=== PATIENT | female | born 1985 | race African-American/Black ===

== ENCOUNTER 2019-11-10 22:20 | Emergency (ER) | payer OTHER ==
[2019-11-10 23:01] LABS: ABS Eosinophils 0.1 10^3/ul (0-0.6); ABS Lymphocytes 2.5 10^3/ul (1.0-4.8); ABS Monocytes 0.6 10^3/ul (0-0.8); Hematocrit 36 % (35-47); Hemoglobin 11.9 g/dL (12.0-16.0); Lymphocyte % 34.4 %; Mean Corpuscular HGB Conc 33 g/dL (31-36); Mean Corpuscular Hemoglobin 28 pg (27-31); Mean Corpuscular Volume 85 fL (80-97); Platelet Count 301 10^3/uL (150-450); Red Blood Count 4.23 10^6 /uL (3.70-4.87); Red Cell Distribution Width 14 % (10-15); White Blood Count 7.2 10^3/uL (3.5-10.8)
[2019-11-10 23:06] LABS: INR 0.94 (0.82-1.09)
[2019-11-10 23:11] LABS: Albumin 4.1 g/dL (3.2-5.2); Albumin/Globulin Ratio 1.4 (1-3); Calcium 8.9 mg/dL (8.6-10.3); EGFR African American 107.7 (>60); Total Bilirubin 0.2 mg/dL (0.2-1.0); Total Protein 7.1 g/dL (6.4-8.9)
[2019-11-10 23:50] LABS: Potassium 3.8 mmol/L (3.5-5.0)
--- NOTE | 2019-11-11 03:41 | ED ---
HPI Cardiac - HPI Summary HPI Summary: Patient is a 34 y/o F presenting to [facility] with complaints of CP, HURD, sore throat , SOB. She states that for the past 2.5 weeks, she has had sore throat, HURD, and CP. On 11/10/19, patient had worsened CP and onset of SOB. Patient called nursing line about her Sx, patient was advised to come to ED for workup. Sx are still present. Difficulty swallowing is denied. No fever reported. Slight cough today noted. N/V/D, abdominal pain, decreased appetite, UTI Sx are denied. LNMP was 4-5 days ago. PMHx of exercise-induced asthma, pre-diabetes noted. NKDA reported. She is a non-smoker, notes rare alcohol, denies substance abuse. PSHx of polyp removal reported. FMHx of diabetes and HTN noted. Home medications and allergies are reviewed. - History of Current Complaint Chief Complaint: EDChestPainROMI Stated Complaint: SOB PER PT Time Seen by Provider: 11/11/19 03:28 Hx Obtained From: Patient Onset/Duration: Started Weeks Ago, Still Present Timing: Lasting Weeks Current Severity: Moderate Pain Intensity: 4 Pain Scale Used: 0-10 Numeric Associated Signs and Symptoms: Positive: Chest Pain, Shortness of Breath, Cough , Other: - negative - difficulty swallowing, diarrhea, decreased appetite, UTI Sx. Negative: Fever, Nausea, Abdominal Pain, Vomiting - Allergy/Home Medications Allergies/Adverse Reactions: Allergies Allergy/AdvReac Type Severity Reaction Status Date / Time No Known Allergies Allergy Verified 11/21/17 14:53 Home Medications: Home Medications predniSONE 20 mg TAB [Deltasone 20 MG TAB*] 40 mg PO DAILY #10 tab 11/11/19 [Rx] predniSONE 20 mg TAB [Deltasone 20 MG TAB*] 40 mg PO DAILY #10 tab 11/11/19 [Rx] PMH/Surg Hx/FS Hx/Imm Hx Endocrine/Hematology History: Reports: Hx Diabetes - PRE DIABETES NO MEDICATION Cardiovascular History: Denies: Hx Hypertension, Hx Pacemaker/ICD Respiratory History: Reports: Hx Asthma History: Denies: Hx Renal Disease Sensory History: Denies: Hx Hearing Aid Psychiatric History: Denies: Hx Panic Disorder - Surgical History Surgery Procedure, Year, and Place: POLYP REMOVED FROM UTERUS - Immunization History Immunizations Up to Date: Yes Infectious Disease History: Yes Infectious Disease History: Denies: Traveled Outside the [place] in Last 30 Days - Family History Known Family History: Positive: Hypertension, Diabetes - Social History Alcohol Use: Occasionally Substance Use Type: Reports: None Smoking Status (MU): Never Smoked Tobacco - Additional Comments History Additional Comments: PMHx of exercise-induced asthma, pre-diabetes PSHx of polyp removal FMHx of diabetes and HTN Review of Systems - ROS Summary Review of Systems Summary: Home Medications Medication Instructions Recorded Confirmed Type predniSONE 20 mg TAB [Deltasone 20 40 mg PO DAILY #10 tab 11/11/19 Rx MG TAB*] Negative: Fever ENT: Other - negative - difficulty swallowing Positive: Sore Throat Positive: Chest Pain Positive: Shortness Of Breath, Cough Gastrointestinal: Other - negative - decreased appetite Negative: Abdominal Pain, Vomiting, Diarrhea, Nausea Positive: no symptoms reported - No UTI Sx Positive: Headache All Other Systems Reviewed And Are Negative: Yes Physical Exam - Summary Physical Exam Summary: General: Well-developed, Obese female. No acute distress. HEENT: Normocephalic, Atraumatic. Eyes: Conjuctiva normal, PERRL. Oropharynx: Erythematous oropharynx with exudates Neck: Soft, FROM, (-) lymphadenopathy, (-) thyromegaly, (-) JVD. Cardiovascular: Normal sinus rhythm, (-) murmur. Lungs: decreased breath sounds bilaterally, prolonged expiration (-) wheezes, (- ) rales, (-) rhonchi. Abdomen: Soft, non-tender, non-distended, (-) organomegaly, normal bowel sounds. Back: (-) CVA tenderness Extremities: No edema. Skin: Warm, dry, (-) rash. Neuro: Alert and oriented x3, moves all extremities equally. No ataxia. No gait disturbance. No sensory deficit. Normal strength, normal sensation. Psychiatric: Mildly anxious appearing. Triage Information Reviewed: Yes Vital Signs On Initial Exam: Initial Vitals Temp Pulse Resp BP Pulse Ox 98.5 F 83 18 144/92 99 11/10/19 22:31 11/10/19 22:31 11/10/19 22:31 11/10/19 22:31 11/10/19 22:31 Vital Signs Reviewed: Yes Procedures - Sedation Patient Received Moderate/Deep Sedation with Procedure: No Diagnostics - Vital Signs Vital Signs Temp Pulse Resp BP Pulse Ox 11/11/19 03:05 69 119/68 97 11/11/19 03:04 65 98 11/11/19 00:17 98.6 F 71 16 150/81 98 11/10/19 22:31 98.5 F 83 18 144/92 99 - Laboratory Lab Results: Lab Results 11/10/19 11/10/19 11/10/19 Range/Units 22:45 22:45 22:45 WBC 7.2 (3.5-10.8) 10^3/uL RBC 4.23 (3.70-4.87) 10^6 /uL Hgb 11.9 L (12.0-16.0) g/dL Hct 36 (35-47) % MCV 85 (80-97) fL MCH 28 (27-31) pg MCHC 33 (31-36) g/dL RDW 14 (10-15) % Plt Count 301 (150-450) 10^3/uL MPV 8.0 (7.4-10.4) fL Neut % (Auto) 55.3 % Lymph % (Auto) 34.4 % [place] % (Auto) 8.7 % Eos % (Auto) 1.0 % Baso % (Auto) 0.6 % Absolute Neuts (auto) 4.0 (1.5-7.7) 10^3/ul Absolute Lymphs (auto) 2.5 (1.0-4.8) 10^3/ul Absolute Monos (auto) 0.6 (0-0.8) 10^3/ul Absolute Eos (auto) 0.1 (0-0.6) 10^3/ul Absolute Basos (auto) 0.0 (0-0.2) 10^3/ul Absolute Nucleated RBC 0.0 10^3/ul Nucleated RBC % 0.0 INR (Anticoag Therapy) 0.94 (0.82-1.09) Sodium 137 (135-145) mmol/L Potassium 3.8 (3.5-5.0) mmol/L Chloride 104 (101-111) mmol/L Carbon Dioxide 26 (22-32) mmol/L Anion Gap 7 (2-11) mmol/L BUN 12 (6-24) mg/dL Creatinine 0.75 (0.51-0.95) mg/dL Est GFR ( Amer) 107.7 (>60) Est GFR (Non-Af Amer) 89.0 (>60) BUN/Creatinine Ratio 16.0 (8-20) Glucose 132 H (70-100) mg/dL Calcium 8.9 (8.6-10.3) mg/dL Total Bilirubin 0.20 (0.2-1.0) mg/dL AST 26 (13-39) U/L ALT 37 (7-52) U/L Alkaline Phosphatase 48 (34-104) U/L Troponin I 0.00 (<0.03) ng/mL Total Protein 7.1 (6.4-8.9) g/dL Albumin 4.1 (3.2-5.2) g/dL Globulin 3.0 (2-4) g/dL Albumin/Globulin Ratio 1.4 (1-3) 11/11/19 Range/Units 02:55 WBC (3.5-10.8) 10^3/uL RBC (3.70-4.87) 10^6 /uL Hgb (12.0-16.0) g/dL Hct (35-47) % MCV (80-97) fL MCH (27-31) pg MCHC (31-36) g/dL RDW (10-15) % Plt Count (150-450) 10^3/uL MPV (7.4-10.4) fL Neut % (Auto) % Lymph % (Auto) % [place] % (Auto) % Eos % (Auto) % Baso % (Auto) % Absolute Neuts (auto) (1.5-7.7) 10^3/ul Absolute Lymphs (auto) (1.0-4.8) 10^3/ul Absolute Monos (auto) (0-0.8) 10^3/ul Absolute Eos (auto) (0-0.6) 10^3/ul Absolute Basos (auto) (0-0.2) 10^3/ul Absolute Nucleated RBC 10^3/ul Nucleated RBC % INR (Anticoag Therapy) (0.82-1.09) Sodium (135-145) mmol/L Potassium (3.5-5.0) mmol/L Chloride (101-111) mmol/L Carbon Dioxide (22-32) mmol/L Anion Gap (2-11) mmol/L BUN (6-24) mg/dL Creatinine (0.51-0.95) mg/dL Est GFR ( Amer) (>60) Est GFR (Non-Af Amer) (>60) BUN/Creatinine Ratio (8-20) Glucose (70-100) mg/dL Calcium (8.6-10.3) mg/dL Total Bilirubin (0.2-1.0) mg/dL AST (13-39) U/L ALT (7-52) U/L Alkaline Phosphatase (34-104) U/L Troponin I 0.00 (<0.03) ng/mL Total Protein (6.4-8.9) g/dL Albumin (3.2-5.2) g/dL Globulin (2-4) g/dL Albumin/Globulin Ratio (1-3) Result Diagrams: 11/10/19 22:45 11/10/19 22:45 Lab Statement: Any lab studies that have been ordered have been reviewed, and results considered in the medical decision making process. - Radiology CXR Radiology Interpretation Completed By: ED Physician Summary of Radiographic Findings: No pleural effusion, no obvious infiltrate, pending official report. - EKG 2245 Cardiac Rate: NL - rate of 85 BPM EKG Rhythm: Sinus Rhythm Summary of EKG Findings: EKG showed sinus rhythm with rate of 85 BPM, no STEMI. Dr. Churchill reviewed and interpreted this EKG. Re-Evaluation - Re-Evaluation First Eval Re-Evaluation Time: 05:20 Change: Improved Comment: Improvment w/ breathing treatment, patient to be discharged. Disposition - Course Course Of Treatment: 34-year-old female presents with symptoms of chest tightness, headache, sore throat and feeling poorly for about 2 weeks now. She 's been having shortness of breath which she has attributed to some weight gain. Patient denies any high fevers. She does have history of asthma as a candidate and has an inhaler for exercise-induced asthma. No vomiting or diarrhea. On physical exam she has some mild tight wheezing. Decreased breath sounds bilaterally with prolonged expiration. Patient responds well to breathing treatments. Workup demonstrates a negative cardiac workup, negative chest x-ray. Patient started on steroids. Albuterol inhaler 4 times a day. Follow-up with PCP. Follow sooner for any worsening symptoms. During ED course patient received Duoneb and prednisone 40 mg. - Diagnoses Provider Diagnoses: Bronchitis with bronchospasm Discharge ED - Sign-Out/Discharge Documenting (check all that apply): Patient Departure - discharge - Discharge Plan Condition: Stable Disposition: HOME Prescriptions: predniSONE 20 mg TAB [Deltasone 20 MG TAB*] 40 mg PO DAILY #10 tab predniSONE 20 mg TAB [Deltasone 20 MG TAB*] 40 mg PO DAILY #10 tab Patient Education Materials: Acute Bronchitis (ED), Bronchospasm (ED) Forms: *School Release Referrals: Vani Feliz DO [Primary Care Provider] - 3 Days Additional Instructions: PLEASE RETURN TO ED FOR ANY NEW OR CONCERNING SYMPTOMS. PLEASE FOLLOW UP WITH YOUR PRIMARY CARE PHYSICIAN WITHIN THREE DAYS. - Billing Disposition and Condition Condition: STABLE Disposition: Home - Attestation Statements Document Initiated by Wenceslao: Yes Documenting Scribe: IAM VIDES Provider For Whom Wenceslao is Documenting (Include Credential): NEENA CHURCHILL MD Scribe Attestation: IAM Knight, scribed for NEENA CHURCHILL MD on 11/13/19 at [id number]. Scribe Documentation Reviewed: Yes Provider Attestation: The documentation as recorded by the IAM schmitt accurately reflects the service I personally performed and the decisions made by me, NEENA CHURCHILL MD Status of Scribe Document: Viewed
[2019-11-11] MEDS ORDERED: Albuterol/Ipratropium NEB.SOL* Albuterol 2.5 MG/Ipratropium 0.5 MG 3 ML INH ONE (03:59)
[2019-11-11 04:15] LABS: HCG Pregnancy < 0.60 mIU/mL
[2019-11-11 05:33] VITALS: BP 141/75
== END 2019-11-11 05:42 | disposition home or self-care (01) ==
LOC: ED 22:20
DX: J20.9 Acute bronchitis, unspecified (principal); R07.89 Other chest pain; R73.03 Prediabetes; J45.990 Exercise induced bronchospasm; Z79.51 Long term (current) use of inhaled steroids
CPT/HCPCS: 36415; 71045; 80053; 84484; 84702; 85025; 85610; 86308; 93005; 99283; A9270-GY; J7512

== ENCOUNTER 2019-11-21 20:48 | Emergency (ER) | payer OTHER ==
[2019-11-21] MEDS ORDERED: NS 0.9% 1000 ML** 1,000 ML IV ONE (21:38)
[2019-11-21] MEDS ORDERED: Acetaminophen TAB* 325 MG PO ONE (21:39)
--- NOTE | 2019-11-21 21:44 | ED ---
Shortness of Breath - HPI Summary HPI Summary: 34 year old F presenting to [facility] via private car with a chief complaint of persistent SOB. Patient visited [facility] on 11/10/2019 complaining of similar symptoms and was diagnosed with bronchitis with bronchospasm. She followed up with [facility] and tested positive for COVID19, which resulted yesterday, . Patient states that she has been persistently SOB today. She has a temperature of 100.2 Fahrenheit. She states finding minimal relief with albuterol inhaler usage. Patient denies having a PMHx of CAD and embolisms. Home Medications Medication Instructions Recorded Confirmed Type predniSONE 20 mg TAB [Deltasone 20 40 mg PO DAILY #10 tab 11/11/19 Rx MG TAB*] Albuterol Sulfate [Albuterol 1 puff INH BID 11/21/19 11/21/19 History Sulfate Hfa] Azithromycin 11/21/19 History Beclomethasone Dipropionate [Qvar 1 inh INH DAILY 11/21/19 11/21/19 History Redihaler] metFORMIN* [Glucophage 500 MG TAB 500 mg pe PO BID 11/21/19 11/21/19 History *] - History of Current Complaint Chief Complaint: EDShortnessOfBreath Time Seen by Provider: 11/21/19 20:56 Hx Obtained From: Patient Onset/Duration: Still Present Timing: Constant Aggravating Factors: Nothing Alleviating Factors: Nothing - Allergy/Home Medications Allergies/Adverse Reactions: Allergies Allergy/AdvReac Type Severity Reaction Status Date / Time No Known Allergies Allergy Verified 11/21/19 21:53 Home Medications: Home Medications predniSONE 20 mg TAB [Deltasone 20 MG TAB*] 40 mg PO DAILY #10 tab 11/11/19 [Rx] Albuterol Sulfate [Albuterol Sulfate Hfa] 1 puff INH BID 11/21/19 [History Confirmed 11/21/19] Beclomethasone Dipropionate [Qvar Redihaler] 1 inh INH DAILY 11/21/19 [History Confirmed 11/21/19] metFORMIN* [Glucophage 500 MG TAB *] 500 mg pe PO BID 11/21/19 [History Confirmed 11/21/19] PMH/Surg Hx/FS Hx/Imm Hx Endocrine/Hematology History: Reports: Hx Diabetes - PRE DIABETES NO MEDICATION Cardiovascular History: Denies: Hx Hypertension, Hx Pacemaker/ICD Respiratory History: Reports: Hx Asthma, Other Respiratory Problems/Disorders - Patient is positive for COVID19. History: Denies: Hx Renal Disease Sensory History: Denies: Hx Hearing Aid Psychiatric History: Denies: Hx Panic Disorder - Surgical History Surgery Procedure, Year, and Place: POLYP REMOVED FROM UTERUS - Immunization History Immunizations Up to Date: Yes Infectious Disease History: Yes Infectious Disease History: Denies: Traveled Outside the [place] in Last 30 Days - Family History Known Family History: Positive: Hypertension, Diabetes - Social History Alcohol Use: Occasionally Substance Use Type: Reports: None Smoking Status (MU): Never Smoked Tobacco Review of Systems Negative: Fever - Patient is borderline febrile with a temperature of 100.2 Farenheit. Positive: Shortness Of Breath All Other Systems Reviewed And Are Negative: Yes Physical Exam - Summary Physical Exam Summary: Constitutional: Well-developed, Well-nourished, Alert. Skin: Warm, Dry HENT: Normocephalic; Atraumatic Eyes: Conjunctiva normal Neck: Musculoskeletal ROM normal neck. (-) JVD, (-) Stridor, (-) Tracheal deviation Cardio: Rhythm regular, rate normal, Heart sounds normal; Intact distal pulses; The pedal pulses are 2+ and symmetric. Radial pulses are 2+ and symmetric. (-) Murmur Pulmonary/Chest wall: Effort normal. (+) Respiratory distress, (+) Wheezes, (-) Rales. Patient has a dry cough and has wheezing during cough. Abd: Soft, (-) tenderness, (-) Distension, (-) Guarding, (-) Rebound Musculoskeletal: (-) Edema Lymph: (-) Cervical adenopathy Neuro: Alert, Oriented x3 Psych: Mood and affect Normal Triage Information Reviewed: Yes Vital Signs On Initial Exam: Initial Vitals Temp Pulse Resp Pulse Ox 100.2 F 100 22 96 11/21/19 21:12 11/21/19 21:12 11/21/19 21:12 11/21/19 21:12 Vital Signs Reviewed: Yes Procedures - Sedation Patient Received Moderate/Deep Sedation with Procedure: No Diagnostics - Vital Signs Vital Signs Temp Pulse Resp BP Pulse Ox 11/21/19 21:21 89/70 11/21/19 21:12 100.2 F 100 22 96 - Laboratory Result Diagrams: 11/21/19 22:05 11/21/19 22:05 Lab Statement: Any lab studies that have been ordered have been reviewed, and results considered in the medical decision making process. - Radiology CXR Radiology Interpretation Completed By: ED Physician Summary of Radiographic Findings: CXR shows no acute disease, CXR is similar to one obtained 11/10/19. Pending official report. Course/Dx - Course Course Of Treatment: Patient presented to [facility] with a chief complaint of SOB with minimal relief. Patient tested positive for COVID19 at [facility]. She had a dry cough with wheezing. She recieved 650 mg of acetaminophen and 1000mls of 0.9% sodium chloride. CXR shows no acute disease, CXR is similar to one obtained 11/10/19. Bloodwork was obtained, abnormal values include sodium 134, BUN/creatinine 7.9, glucose 103, CRP 30.69. She was discharged to home with a referral for PCP followup over the phone. Patient was given COVID19 and isolation education. [facility] to follow up with the patient. - Diagnoses Provider Diagnoses: Infection due to 2019-nCo Discharge ED - Sign-Out/Discharge Documenting (check all that apply): Patient Departure - Discharge. - Discharge Plan Condition: Stable Disposition: HOME Forms: COVID-19 Tested & Isolation Referrals: Vani Feliz DO [Primary Care Provider] - 3 Days Additional Instructions: Please return to the ED for any new or worsening symptoms. Please followup with PCP over the phone within 3 days. Stop using prednisone and motrin (ibuprofen) until symptoms resolve. Please practice isolation until symptoms resolve. - Billing Disposition and Condition Condition: STABLE Disposition: Home - Attestation Statements Document Initiated by Wilneribe: Yes Documenting Scribe: Kayy Faust Provider For Whom Wenceslao is Documenting (Include Credential): Chon Warren DO Scribe Attestation: Kayy Knight scribed for Chon Warren DO on at [id number]. Scribe Documentation Reviewed: Yes Provider Attestation: The documentation as recorded by the wilneribe, Kayy Faust accurately reflects the service I personally performed and the decisions made by me, Chon Warren DO Status of Scribe Document: Viewed
[2019-11-21 22:27] LABS: ABS Lymphocytes 1.3 10^3/ul (1.0-4.8); ABS Monocytes 0.5 10^3/ul (0-0.8); ABS Neutrophils 3.7 10^3/ul (1.5-7.7); Hematocrit 38 % (35-47); Hemoglobin 13.1 g/dL (12.0-16.0); Lymphocyte % 23.5 %; Mean Corpuscular HGB Conc 34 g/dL (31-36); Mean Corpuscular Hemoglobin 28 pg (27-31); Mean Corpuscular Volume 83 fL (80-97); Mean Platelet Volume 8.1 fL (7.4-10.4); Nucleated Red Blood Cells % 0.1; Platelet Count 232 10^3/uL (150-450); Red Blood Count 4.62 10^6 /uL (3.70-4.87); Red Cell Distribution Width 15 % (10-15); White Blood Count 5.6 10^3/uL (3.5-10.8)
[2019-11-21 22:34] LABS: Albumin 4.1 g/dL (3.2-5.2); CO2 Carbon Dioxide 25 mmol/L (22-32); Calcium 8.3 mg/dL (8.6-10.3); Chloride 101 mmol/L (101-111); Sodium 134 mmol/L (135-145)
[2019-11-21 22:40] LABS: ALT 51 U/L (7-52); Albumin/Globulin Ratio 1.3 (1-3); Alkaline Phosphatase 53 U/L (34-104); BUN/Creatinine Ratio 7.9 (8-20); Blood Urea Nitrogen 7 mg/dL (6-24); C Reactive Protein 30.69 mg/L (<8.01); EGFR African American 88.4 (>60); Globulin 3.2 g/dL (2-4); Glucose 103 mg/dL (70-100); Total Protein 7.3 g/dL (6.4-8.9)
[2019-11-21 22:52] LABS: Anion Gap 8 mmol/L (2-11); Potassium 3.9 mmol/L (3.5-5.0)
[2019-11-21 22:53] LABS: AST 35 U/L (13-39)
[2019-11-21 23:09] VITALS: BP 129/68
[2019-11-21 23:17] LABS: HCG Pregnancy < 0.60 mIU/mL
--- NOTE | 2019-11-22 15:19 | ED ---
Imaging and Labs Follow Up Follow Up Type: Imaging Labs/Culture Result: Similar mild patchy airspace disease Patient Communication/Plan: Patient did test positive for Covid 19 Imaging Result: similar to previous xray nothing further required Patient Communication/Plan: pt was informed of positive covid and will f/u with PCP Provider Diagnoses: Infection due to 2019-nCoV
== END 2019-11-21 22:56 | disposition home or self-care (01) ==
LOC: ED 20:48
DX: J20.8 Acute bronchitis due to other specified organisms (principal); B97.29 Other coronavirus as the cause of diseases classified elsewhere; R06.02 Shortness of breath; R50.9 Fever, unspecified; R06.2 Wheezing; Z79.52 Long term (current) use of systemic steroids; Z79.899 Other long term (current) drug therapy; R73.03 Prediabetes
CPT/HCPCS: 36415; 71045; 80053; 83605; 84702; 85025; 86140; 99284; A9270-GY

== ENCOUNTER 2019-11-23 12:10 | Emergency (ER) | payer OTHER ==
--- NOTE | 2019-11-23 12:32 | ED ---
Respiratory - HPI Summary HPI Summary: This patient is a 34 year old female presenting to [facility] with a chief complaint of SOB. Patient initially came to the ER and was diagnosed with bronchitis with bronchospasm. Symptoms did not resolve and tested positive for COVID-19 at [facility]. She states her coughing spasms have become more severe where it is difficult for her to breathe. She states she does not feel short of breath when she is not coughing and laying down. She states when she walks around she feels a little winded but symptoms do not significantly change upon exertion. She states she is not currently experiencing SOB. She states she talked to the [facility] Department which directed her here. She states a childhood Hx of asthma. She states the severity of cough is constant with intermittent attacks in greater severity. She states her fevers are consistently 101 F when she is not taking Tylenol. Her fevers and cough have been more persistent and occurring more frequently than at initial onset. Patient denies any chills, erythema of eyes, sore throat, chest pain, abdominal pain, nausea/vomiting, dysuria, hematuria, myalgia, edema, rash, or dizziness. - History of Current Complaint Stated Complaint: GENERAL ILLNESS BY HEALTH DEPT Time Seen by Provider: 11/23/19 12:13 Hx Obtained From: Patient Onset/Duration: Lasting Days Character: Wheezing, Cough (Nonproductive) - Allergy/Home Medications Allergies/Adverse Reactions: Allergies Allergy/AdvReac Type Severity Reaction Status Date / Time No Known Allergies Allergy Verified 11/21/19 21:53 Home Medications: Home Medications Albuterol Sulfate [Albuterol Sulfate Hfa] 1 puff INH BID 11/21/19 [History Confirmed 11/23/19] Beclomethasone Dipropionate [Qvar Redihaler] 1 inh INH DAILY 11/21/19 [History Confirmed 11/23/19] Azithromycin TAB* [Zithromax TAB (Z-ATA) 250 mg #6 tabs] 2 tab PO .TODAY, THEN 1 DAILY #1 ata 11/23/19 [Rx] Azithromycin TAB* [Zithromax TAB (Z-ATA) 250 mg #6 tabs] 2 tab PO .TODAY, THEN 1 DAILY #1 ata 11/23/19 [Rx] Dexamethasone TAB* [Decadron TAB*] 8 mg PO DAILY #8 tab 11/23/19 [Rx] Dexamethasone TAB* [Decadron TAB*] 8 mg PO DAILY #8 tab 11/23/19 [Rx] PMH/Surg Hx/FS Hx/Imm Hx Endocrine/Hematology History: Reports: Hx Diabetes - PRE DIABETES NO MEDICATION Cardiovascular History: Denies: Hx Hypertension, Hx Pacemaker/ICD Respiratory History: Reports: Hx Asthma, Other Respiratory Problems/Disorders - Patient is positive for COVID19. History: Denies: Hx Renal Disease Sensory History: Denies: Hx Hearing Aid Psychiatric History: Denies: Hx Panic Disorder - Surgical History Surgery Procedure, Year, and Place: POLYP REMOVED FROM UTERUS - Family History Known Family History: Positive: Hypertension, Diabetes - Social History Alcohol Use: Occasionally Hx Substance Use: No Substance Use Type: Reports: None Hx Tobacco Use: No Smoking Status (MU): Never Smoked Tobacco Review of Systems Positive: Fever. Negative: Chills Negative: Erythema Negative: Sore Throat Negative: Chest Pain Positive: Shortness Of Breath, Cough Negative: Abdominal Pain, Vomiting, Nausea Negative: dysuria, hematuria Negative: Myalgia, Edema Negative: Rash Neurological/Mental Status: Other - Neg: Dizziness All Other Systems Reviewed And Are Negative: Yes Physical Exam - Summary Physical Exam Summary: Constitutional: Well-developed, Well-nourished, Alert. (-) Distressed Skin: Warm, Dry HENT: Normocephalic; Atraumatic Eyes: Conjunctiva normal Neck: Musculoskeletal ROM normal neck. (-) JVD, (-) Stridor, (-) Tracheal deviation Cardio: Rhythm regular, rate normal, Heart sounds normal; Intact distal pulses; Radial pulses are 2+ and symmetric. (-) Murmur Pulmonary/Chest wall: Incessant coughing with deep breaths, Faint crackles in the right lower lung field, (-) Respiratory distress, (-) Wheezes, (-) Rales Abd: Soft, (-) tenderness, (-) Distension, (-) Guarding, (-) Rebound Musculoskeletal: (-) Edema Lymph: (-) Cervical adenopathy Neuro: Alert, Oriented x3 Psych: Mood and affect Normal Triage Information Reviewed: Yes Vital Signs On Initial Exam: Temp Pulse Resp BP Pulse Ox 99.6 F 88 22 117/72 95 11/23/19 12:30 11/23/19 12:30 11/23/19 12:30 11/23/19 12:30 11/23/19 12:30 Vital Signs Reviewed: Yes Procedures - Sedation Patient Received Moderate/Deep Sedation with Procedure: No Diagnostics - Laboratory Result Diagrams: 11/23/19 14:09 11/23/19 14:09 Lab Statement: Any lab studies that have been ordered have been reviewed, and results considered in the medical decision making process. - CT Chest CT CT Interpretation Completed By: Radiologist Summary of CT Findings: Impression: 1. Atypical pneumonia involving approximately 20% of the lung montoya (nonspecific findings are compatible with the provided history of COVID19). 2. No pleural effusion or lymphadenopathy by size criteria. 3. Hepatic steatosis. Dr. Navarro has reviewed this report. Re-Evaluation - Re-Evaluation First Eval Re-Evaluation Time: 15:45 Change: Improved Comment: Patient is feeling better. We discussed all results and plan for discharge. Disposition - Course Course Of Treatment: This patient is a 34 year old female presenting to [facility] with a chief complaint of SOB. Patient initially came to the ER and was diagnosed with bronchitis with bronchospasm. Symptoms did not resolve and tested positive for COVID-19 at [facility]. She states her coughing spasms have become more severe where it is difficult for her to breathe. She states she does not feel short of breath when she is not coughing and laying down. She states when she walks around she feels a little winded but symptoms do not significantly change upon exertion. She states she is not currently experiencing SOB. She states she talked to the [facility] Department which directed her here. She states a Hx of asthma, worse when she wa sa child. She states the severity of cough is constant with intermittent attacks in greater severity. She states her fevers are consistently 101 F when she is not taking Tylenol. Her fevers and cough have been more persistent and occurring more frequently than at initial onset. No chills, chest pain, sore throat. Patient is incessantly coughing upon deep inhalation during physical exam. There are faint crackles in the right lower lung field. She will be given steroids and MDI due to Hx of astham. The cough and wheezing she described could be realted to asthma exacerbation. Patient received Decadron, Albuterol treatment, Azithromycin. Blood work primarily within normal limits with slight abnormalities of BUN 5, glucose 115, calcium 8.5. Chest CT reveals atypical pneumonia involving approximately 20% of the lung montoya compatible with positive COVID19 history; no pleural effusion or lymphadenopathy. Patient has been positive for COVID-19 and could have developed secondary bacterial pneumonia that is also exacerbating her asthma. All results discussed with the patient. Patient is safe for discharge with [facility] follow up in 2-3 days. Rx for Azithromycin and Decadron. Return precautions given. Patient agreeable with plan. The patient's cough is debilitating for her to the point where she cannot sleep, also to the point of near syncope from vagal response. The patient asthma exacerbations treated with steroids as a comorbid condition to covid. Assessment/Plan: I discussed the case with Dr. Sheriff, the medical equipment repair technician of [facility]. They will reassess the patient tomorrow, the plan at this point is to assess for positive therapeutic effective of steroid, if worsening symptoms have not improved markedly by tomorrow, we will assume that steroids would not add any benefit, and would be discontinued at that time. I reiterated my concern that the patient's pneumonia and covid was exacerbating her asthma. - Diagnoses Provider Diagnoses: Bacterial pneumonia, Pneumonia due to 2019 novel coronavirus, Asthma exacerbation - Physician Notifications Discussed Care Of Patient With: Sowmya Sheriff Time Discussed With Above Provider: 16:15 Instructed by Provider To: Have Pt Call For Appt. Admit/Transition Orders Completed By ED Provider: No Discharge ED - Sign-Out/Discharge Documenting (check all that apply): Patient Departure - Patient will be discharged home. - Discharge Plan Condition: Stable Disposition: HOME Prescriptions: Azithromycin TAB* [Zithromax TAB (Z-ATA) 250 mg #6 tabs] 2 tab PO .TODAY, THEN 1 DAILY #1 ata Azithromycin TAB* [Zithromax TAB (Z-ATA) 250 mg #6 tabs] 2 tab PO .TODAY, THEN 1 DAILY #1 ata Dexamethasone TAB* [Decadron TAB*] 8 mg PO DAILY #8 tab Dexamethasone TAB* [Decadron TAB*] 8 mg PO DAILY #8 tab Patient Education Materials: Asthma (DC), Viral Pneumonia (DC), Bacterial Pneumonia (ED) Referrals: [facility] [Provider Group] - 3 Days Vani Feliz DO [Primary Care Provider] - If Needed Additional Instructions: Please take antibiotics as prescribed. Follow up with [facility] in 2-3 days. Consider tele health. Return to the emergency department for any new or worsening symptoms such as shortness of breath that does not resolve after coughing. - Billing Disposition and Condition Condition: STABLE Disposition: Home - Attestation Statements Document Initiated by Wenceslao: Yes Documenting Scribe: Keerthi Arriaza Provider For Whom Wenceslao is Documenting (Include Credential): Jagdish Navarro MD Scribe Attestation: Wayne Knight Natalie George, scribed for Jagdish Navarro MD on 11/23/19 at 1627. Scribe Documentation Reviewed: Yes Provider Attestation: The documentation as recorded by the Wayne schmitt Natalie George accurately reflects the service I personally performed and the decisions made by Jagdish smith MD Status of Scribe Document: Viewed
[2019-11-23] MEDS ORDERED: Dexamethasone TAB* 4 MG PO ONE (12:44)
[2019-11-23] MEDS ORDERED: Albuterol HFA INHALER* 8 gm MDI INH ONE (12:45)
[2019-11-23] MEDS ORDERED: Azithromycin TAB* 250 MG PO ONE (14:21)
[2019-11-23 14:24] LABS: Hematocrit 37 % (35-47); Hemoglobin 12.7 g/dL (12.0-16.0); Mean Corpuscular HGB Conc 34 g/dL (31-36); Mean Corpuscular Hemoglobin 28 pg (27-31); Mean Corpuscular Volume 84 fL (80-97); Mean Platelet Volume 7.9 fL (7.4-10.4); Platelet Count 188 10^3/uL (150-450); Red Blood Count 4.47 10^6 /uL (3.70-4.87); Red Cell Distribution Width 15 % (10-15)
[2019-11-23 14:36] LABS: Albumin 3.9 g/dL (3.2-5.2); Albumin/Globulin Ratio 1.3 (1-3); BUN/Creatinine Ratio 6.4 (8-20); Calcium 8.5 mg/dL (8.6-10.3); EGFR African American 102.9 (>60); EGFR Non-African American 85.1 (>60); Globulin 2.9 g/dL (2-4); Potassium 3.9 mmol/L (3.5-5.0); Total Bilirubin 0.3 mg/dL (0.2-1.0); Total Protein 6.8 g/dL (6.4-8.9)
[2019-11-23 16:03] VITALS: BP 113/72
== END 2019-11-23 16:02 | disposition home or self-care (01) ==
LOC: ED 12:10
DX: J12.89 Other viral pneumonia (principal); B97.29 Other coronavirus as the cause of diseases classified elsewhere; J45.901 Unspecified asthma with (acute) exacerbation; K76.0 Fatty (change of) liver, not elsewhere classified; Z79.899 Other long term (current) drug therapy
CPT/HCPCS: 36415; 71250; 80053; 83605; 85027; 99283; A9270-GY; J8540

== ENCOUNTER 2019-11-25 03:27 | Inpatient (IN) | payer OTHER ==
--- NOTE | 2019-11-25 03:30 | ED ---
Shortness of Breath - HPI Summary HPI Summary: Patient is a 34 y/o F presenting to the ED via EMS for a chief complaint of shortness of breath. Patient states she was walking to her bathroom when she had a syncopal episode after coughing. At home, patient also reports fever of 102 F. She has been taking Tylenol to manage the fever, but has not yet taken a dose of Tylenol on 11/25/19. Patient was given oxygen by EMS with some relief. Within the last hour BOAT PILOT at [facility], patient has used an inhaler several times without relief. Initially, patient's symptoms began on 11/10/19 at which time she was seen at [facility]. On 11/17/19, patient was seen at [facility] where she was tested for COVID-19. Patient was confirmed positive for COVID-19 on . Since being confirmed positive, she has been seen at [facility] 3 times for shortness of breath and cough. Patient was also recently diagnosed with right sided pneumonia. PMHx is significant for asthma. - History of Current Complaint Chief Complaint: EDShortnessOfBreath Hx Obtained From: Patient Onset/Duration: Sudden Onset, Still Present Timing: Constant Current Severity: Moderate Dyspnea At: Rest Aggravating Factors: Nothing Alleviating Factors: Oxygen Associated Signs & Symptoms: Fever - In vitals, 101 F - Allergy/Home Medications Allergies/Adverse Reactions: Allergies Allergy/AdvReac Type Severity Reaction Status Date / Time No Known Allergies Allergy Verified 11/25/19 03:58 Home Medications: Home Medications Albuterol Sulfate [Albuterol Sulfate Hfa] 1 puff INH BID 11/21/19 [History Confirmed 11/25/19] Levofloxacin TAB* [Levaquin 750 MG TAB*] 750 mg PO DAILY 11/25/19 [History Confirmed 11/25/19] PMH/Surg Hx/FS Hx/Imm Hx Previously Healthy: Yes Endocrine/Hematology History: Reports: Hx Diabetes - PRE DIABETES NO MEDICATION Cardiovascular History: Denies: Hx Hypertension, Hx Pacemaker/ICD Respiratory History: Reports: Hx Asthma, Hx Pneumonia, Other Respiratory Problems/Disorders - Patient is positive for COVID19. History: Denies: Hx Renal Disease Sensory History: Denies: Hx Hearing Aid Psychiatric History: Denies: Hx Panic Disorder - Surgical History Surgical History: Yes Surgery Procedure, Year, and Place: POLYP REMOVED FROM UTERUS Infectious Disease History: Yes Infectious Disease History: Reports: History Other Infectious Disease - COVID-19 , confirmed positive 11/20/19 Denies: Traveled Outside the [place] in Last 30 Days - Family History Known Family History: Positive: Hypertension, Diabetes - Social History Occupation: Student Alcohol Use: Occasionally Hx Substance Use: No Substance Use Type: Reports: None Hx Tobacco Use: No Smoking Status (MU): Never Smoked Tobacco Review of Systems - ROS Summary Review of Systems Summary: Albuterol Sulfate [Albuterol Sulfate Hfa] 1 puff INH BID 11/21/19 [History Confirmed 11/25/19] Levofloxacin TAB* [Levaquin 750 MG TAB*] 750 mg PO DAILY 11/25/19 [History Confirmed 11/25/19] Positive: Fever - In vitals, 101 F Positive: Shortness Of Breath, Cough Positive: Syncope - Resolved All Other Systems Reviewed And Are Negative: Yes Physical Exam - Summary Physical Exam Summary: General: Well-developed, Well-nourished Female. No acute distress. Febrile. HEENT: Normocephalic, Atraumatic. Eyes: Conjuctiva normal, PERRL. Oropharynx: Clear, mucous membranes moist, (-) exudates. Neck: Soft, FROM, (-) lymphadenopathy, (-) thyromegaly, (-) JVD. Cardiovascular: Normal sinus rhythm, (-) murmur. Tachycardic. Lungs: Clear to auscultation bilaterally (-) wheezes, (-) rales, (-) rhonchi. Abdomen: Soft, non-tender, non-distended, (-) organomegaly, normal bowel sounds. Back: (-) CVA tenderness Extremities: No edema. Skin: Warm, dry, (-) rash. Neuro: Alert and oriented x3, moves all extremities equally. No ataxia. No gait disturbance. No sensory deficit. Normal strength, normal sensation. Psychiatric: Mood normal, affect normal. Triage Information Reviewed: Yes Vital Signs Reviewed: Yes Procedures - Sedation Patient Received Moderate/Deep Sedation with Procedure: No Diagnostics - Laboratory Result Diagrams: 11/25/19 03:30 11/25/19 03:30 Lab Statement: Any lab studies that have been ordered have been reviewed, and results considered in the medical decision making process. Course/Dx - Course Course Of Treatment: 34-year-old female presents to the emergency room by ambulance with cough and shortness of breath. She has been diagnosed with Covid -19 after being tested at [facility] on November 16. She has been back to the emergency room twice since then. Tonight she states she continues with cough. Weakness. Unable to catch her breath. She does have underlying asthma as well. Patient has been taking her medication at home as directed she states. Not currently on steroids. Patient is hypoxic when she is taken off her nasal cannula in the emergency room. She has mild wheezing on exam. Laboratories show slightly elevated lactic acid. Normal white blood cells. Patient discussed with hospitalist for admission. Hospitalist requested CT chest. This is compared to the CT done 2 days ago at a prior ER visit. Patient awaiting admission. In the ED course, patient was given Zosyn 3.375 gm and IV fluids. - Diagnoses Provider Diagnoses: Hypoxia, Infection due to 2019-nCoV - Physician Notifications Discussed Care of Patient With: Elvis Larsen - At 04:20, Dr. Elvis Larsen reviewed the patients case and agrees to admit the patient to [facility] with a diagnosis of 2019-nCoV infection and hypoxia. Time Discussed With Above Provider: 04:20 Instructed by Provider To: Admit As Inpatient Discharge ED - Sign-Out/Discharge Documenting (check all that apply): Patient Departure - Admit - Discharge Plan Condition: Stable Disposition: ADMITTED TO [facility] Referrals: Vani Feliz DO [Primary Care Provider] - - Billing Disposition and Condition Condition: STABLE Disposition: Admitted to [facility] - Attestation Statements Document Initiated by Wenceslao: Yes Documenting Scribe: Debbi Rivero Provider For Whom Wenceslao is Documenting (Include Credential): Nasrin Churchill MD Scribe Attestation: Debbi Knight, scribed for Nasrin Churchill MD on 11/25/19 at 0650. Scribe Documentation Reviewed: Yes Provider Attestation: The documentation as recorded by the Debbi schmitt accurately reflects the service I personally performed and the decisions made by me, Nasrin Churchill MD Status of Scribe Document: Viewed
[2019-11-25] MEDS ORDERED: NS 0.9% 1000 ML** 1,000 ML IV ONE ×2 (03:46→07:48)
[2019-11-25 04:05] LABS: ABS Lymphocytes 1.2 10^3/ul (1.0-4.8); ABS Monocytes 0.5 10^3/ul (0-0.8); ABS Neutrophils 6.1 10^3/ul (1.5-7.7); Hematocrit 37 % (35-47); Hemoglobin 12.6 g/dL (12.0-16.0); Lymphocyte % 15.3 %; Mean Corpuscular HGB Conc 34 g/dL (31-36); Mean Corpuscular Hemoglobin 28 pg (27-31); Mean Corpuscular Volume 83 fL (80-97); Mean Platelet Volume 8.7 fL (7.4-10.4); Platelet Count 215 10^3/uL (150-450); Red Blood Count 4.45 10^6 /uL (3.70-4.87); Red Cell Distribution Width 15 % (10-15); White Blood Count 7.7 10^3/uL (3.5-10.8)
[2019-11-25 04:09] LABS: INR 1.16 (0.82-1.09)
[2019-11-25] MEDS ORDERED: Piperacillin/Tazobac ADVAN(*) 3.375 GM in NS 0.9% 100 ML* 100 ML IVPB ONE (04:18)
[2019-11-25 04:20] LABS: ALT 47 U/L (7-52); Albumin 4.1 g/dL (3.2-5.2); Albumin/Globulin Ratio 1.1 (1-3); Alkaline Phosphatase 47 U/L (34-104); BUN/Creatinine Ratio 8.8 (8-20); Blood Urea Nitrogen 8 mg/dL (6-24); CO2 Carbon Dioxide 24 mmol/L (22-32); Calcium 9.1 mg/dL (8.6-10.3); Chloride 99 mmol/L (101-111); EGFR African American 86.1 (>60); EGFR Non-African American 71.2 (>60); Globulin 3.7 g/dL (2-4); Glucose 121 mg/dL (70-100); Sodium 135 mmol/L (135-145); Total Protein 7.8 g/dL (6.4-8.9)
[2019-11-25] MEDS ORDERED: Piperacillin/Tazobac (*) 3.375 GM BAG ONE (04:20)
[2019-11-25 04:28] LABS: HCG Pregnancy < 0.60 mIU/mL
[2019-11-25] MEDS ORDERED: Iodixanol* (CONTRAST) 320 MG/ML 100 ML SDV IV ONE (04:30)
[2019-11-25] MEDS ORDERED: Ondansetron INJ* 2 MG/ML VIAL IV PRN (05:03)
[2019-11-25] MEDS ORDERED: Acetaminophen TAB* 325 MG PO PRN (05:03)
[2019-11-25] MEDS ORDERED: Iohexol 300* (CONTRAST) 10 ML SDV IV ONE (05:46)
[2019-11-25 06:00] LABS: AST 38 U/L (13-39); Anion Gap 12 mmol/L (2-11); Potassium 4.1 mmol/L (3.5-5.0)
[2019-11-25] MEDS ORDERED: Azithromycin TAB* 250 MG PO SCH ×2 (06:00)
[2019-11-25] MEDS ORDERED: Levofloxacin TAB* 750 MG PO SCH (06:00)
[2019-11-25] MEDS ORDERED: Acetaminophen TAB* 325 MG PO ONE (07:50)
--- NOTE | 2019-11-25 08:05 | HP ---
HISTORY AND PHYSICAL: DATE OF ADMISSION: 11/25/19 HISTORY OF PRESENT ILLNESS: This is a 34-year-old -[place]izen [place] female with past medical history significant for prediabetes and asthma and recently diagnosed with COVID-19 pneumonia. The patient presented to the ED with chief complaint of shortness of breath. The patient states she was walking to her bathroom when she had a syncopal episode after coughing. The shortness of breath is progressively worsening. There is also a complaint of fever, which she said she measured at 102 degrees Fahrenheit, which responded to Tylenol. She was recently diagnosed with COVID-19 and was sent home on p.o. antibiotics Levaquin 750 mg daily and azithromycin 500 mg daily. This is the third time she is coming back to the ED. The patient said she was in [facility] about a month ago and was in the same building with the managing attorney that was diagnosed with COVID-19. She said she went for a conference and was on the 45th floor, while the said managing attorney was on the 47th floor on the same date and time. Cough is nonproductive, but it is increasingly worsening. The patient also diagnosed with right-sided pneumonia and due to her asthma exacerbation, she was placed on prednisone, but prednisone has already been stopped by her PCP when she called her PCP. She denied chest pain, nausea, vomiting. No diarrhea. No constipation. The patient stated she is so weak that she called her mother to come and help her and the mother is also asthmatic before she was diagnosed with COVID-19. PAST MEDICAL HISTORY: 1. Asthma. 2. Prediabetes. PAST SURGICAL HISTORY: Uterine Polyps removal. MEDICATIONS: 1. Albuterol inhaler as needed for shortness of breath and wheezing. 2. She was recently sent home on Levaquin 750 mg daily as well as azithromycin 500 mg daily. ALLERGIES: No known drug allergy. FAMILY HISTORY: Positive for diabetes and hypertension for the mom and dad. The mother also has a history of asthma. SOCIAL HISTORY: The patient denied toxic habits. REVIEW OF SYSTEMS: Positive for fever, shortness of breath. Denied headache or palpitations. Positive for cough. All other systems reviewed are negative except as reported in HPI. PHYSICAL EXAMINATION CONSTITUTIONAL: Well developed, well nourished, alert and in mild respiratory distress. VITAL SIGNS: Temperature 102.5, heart rate 114, respiratory rate 22, oxygen saturation on room air 98%, blood pressure 119/96, HEENT: Normocephalic, atraumatic. Eyes: EOMI. Conjunctivae normal. NECK: Supple. No JVD. No nuchal rigidity. Trachea midline. PULMONARY: Mildly tachypneic, in mild respiratory distress. Decreased respiratory sounds. Bilateral mild wheezing. CARDIOVASCULAR: S1, S2 heard. Tachycardic. No murmurs. No rubs. No friction. ABDOMEN: Soft, obese, nontender, nondistended. No guarding, no rebound. No palpable masses. Bowel sounds heard in all 4 quadrants, normal. MUSCULOSKELETAL: Acyanotic. No edema. Moves all 4 limbs. NEUROLOGIC: Alert and oriented x3. CN II to CN XII grossly normal. No focal deficits. SKIN: Warm, dry, no rashes. PSYCHIATRIC: Mildly anxious. Normal mood and normal affect. DIAGNOSTIC STUDIES/LAB DATA: Hematology: WBC 7.7, RBC 4.45, hemoglobin 12.6, hematocrit 37, MCV 83, MCH 28, MCHC 34, RDW 15, platelet count 215, MPV 8.7, neutrophils 78.4, absolute neutrophils 6.1. Chemistry: Sodium 137, potassium 3.9, chloride 103, carbon dioxide 26, anion gap 8, BUN 5, creatinine 0.78, estimated GFR -[place] 102.9, BUN and creatinine ratio 6.4, glucose 115 , lactic acid 0.7, calcium 8.5, total bilirubin 0.30. AST 37, ALT 46, alkaline phosphatase 51, total protein 6.8, albumin 3.9, globulin 2.9, albumin/globulin ratio 1.3. INR 1.16. CT chest of 11/23/19 revealed atypical pneumonia involving approximately 20% of the lung montoya. Nonspecific findings are compatible with the provided history of COVID-19. No pleural effusion or lymphadenopathy by size criteria. Hepatic steatosis. A request had been put in for repeat CT, CTA for comparison, yet to do this test, we will follow up with the report. ASSESSMENT AND PLAN: A 34-year-old -[place]izen [place] female with past medical history significant for asthma and prediabetes, presented to the ED for the third time with shortness of breath, fever, and syncopal episode after coughing while walking to the bathroom. The patient diagnosed with COVID-19 previously and being treated outpatient. Due to the worsening shortness of breath, the patient will be admitted to the ICU per COVID protocol. For the pneumonia secondary to COVID, the patient will be started on hydroxychloroquine and azithromycin combo per protocol. The patient will also be receiving IV Zosyn to cover for community acquired pneumonia. Acetaminophen for fever. A repeat CT chest, CTA as already stated. Infectious Disease consult. For asthma, the patient will continue on albuterol inhaler. Precaution should be taken for nebulizer use unless when absolutely necessary. Oxygen therapy as needed. For prediabetes, I will advise the patient's diet to be diabetic diet for now. Code status. The patient will be full code at this time. DVT prophylaxis, SCDs. Follow up a.m. labs. Electrolytes and fluids will be repleted as needed. TIME SPENT: Time spent on the admission 65 minutes. Thank you very much for the opportunity to partake in the healthcare need of this silviano lady. [id number]/CPS #: [id number] KENDELL
[2019-11-25] MEDS ORDERED: ZOSYN 3.375 GM Q8H per EXTENDED INFUSION IVPB SCH ×2 (08:30)
[2019-11-25] MEDS ORDERED: Albuterol HFA INHALER* 8 gm MDI INH SCH (09:00)
[2019-11-25 09:17] LABS: C Reactive Protein 27.06 mg/L (<8.01)
[2019-11-25] MEDS: Hydroxychloroquine TAB* 200 MG PO SCH ×2 (09:33→22:41)
--- NOTE | 2019-11-25 12:46 | PN ---
Subjective Date of Service: 11/25/19 Interval History: Brief update: Admitted early this morning after syncopal episode during coughing spell. Nursing staff notes that patient initially required 2L supplemental O2 to maintain SaO2 > 92%. On my interview, patient was able to maintain SaO2 > 92% while on room air, but expressed significant distress over how much dyspnea she experiences when coughing. She is not having dyspnea now, at rest. PCP from [facility] notes that patient has been going to urgent care, [facility], or [facility] daily for most of the last 2 weeks (symptoms started on the ). Objective Active Medications: Acetaminophen (Tylenol Tab*) 975 mg PO Q8H PRN PRN Reason: MILD PAIN or TEMP > 100.4 Albuterol (Ventolin Hfa Inhaler*) 2 puff INH Q4H PRN PRN Reason: WHEEZING Enoxaparin Sodium (Lovenox(*)) 40 mg SUBCUT BEDTIME HECTOR Guaifenesin/Codeine Phosphate (Robitussin Ac 100mg/10mg In 5 Ml) 5 ml PO Q6H PRN PRN Reason: COUGH Hydroxychloroquine Sulfate (Plaquenil Tab*) 600 mg PO BID [facility] Stop: 11/25/19 21:30 Last Admin: 11/25/19 09:33 Dose: 600 mg Hydroxychloroquine Sulfate (Plaquenil Tab*) 400 mg PO DAILY [facility] Stop: 11/29/19 09:01 Magnesium Sulfate (Magnesium Sulfate 2 Gm Iv*) 2 gm in 50 mls @ 50 mls/hr IVPB ONCE ONE Stop: 11/25/19 14:29 Last Admin: 11/25/19 13:19 Dose: 50 mls/hr Ondansetron HCl (Zofran Inj*) 4 mg IV Q4H PRN PRN Reason: NAUSEA/VOMITING Acetaminophen (Tylenol Tab*) 975 mg PO Q8H PRN PRN Reason: MILD PAIN or TEMP > 100.4 Albuterol (Ventolin Hfa Inhaler*) 1 puff INH BID [facility] Last Admin: 11/25/19 09:36 Dose: 1 puff Enoxaparin Sodium (Lovenox(*)) 40 mg SUBCUT BEDTIME HECTOR Guaifenesin/Codeine Phosphate (Robitussin Ac 100mg/10mg In 5 Ml) 5 ml PO Q6H PRN PRN Reason: COUGH Hydroxychloroquine Sulfate (Plaquenil Tab*) 600 mg PO BID [facility] Stop: 11/25/19 21:30 Last Admin: 11/25/19 09:33 Dose: 600 mg Hydroxychloroquine Sulfate (Plaquenil Tab*) 400 mg PO DAILY [facility] Stop: 11/29/19 09:01 Magnesium Sulfate (Magnesium Sulfate 2 Gm Iv*) 2 gm in 50 mls @ 50 mls/hr IVPB ONCE ONE Stop: 11/25/19 14:29 Last Admin: 11/25/19 13:19 Dose: 50 mls/hr Ondansetron HCl (Zofran Inj*) 4 mg IV Q4H PRN PRN Reason: NAUSEA/VOMITING Vital Signs - 8 hr 11/25/19 11/25/19 11/25/19 05:00 05:06 06:19 Temperature 101.0 F Pulse Rate 104 103 104 Respiratory 37 36 20 Rate Blood Pressure 126/78 (mmHg) O2 Sat by Pulse 98 99 Oximetry 11/25/19 11/25/19 11/25/19 06:43 06:50 07:00 Temperature Pulse Rate 108 104 102 Respiratory 37 36 39 Rate Blood Pressure 110/74 122/78 (mmHg) O2 Sat by Pulse 96 96 95 Oximetry 11/25/19 11/25/19 11/25/19 07:20 07:21 07:50 Temperature Pulse Rate 108 103 100 Respiratory 40 38 44 Rate Blood Pressure 92/65 100/65 (mmHg) O2 Sat by Pulse 96 96 98 Oximetry 11/25/19 11/25/19 11/25/19 08:00 08:20 09:00 Temperature Pulse Rate 98 94 97 Respiratory 43 36 38 Rate Blood Pressure 128/69 (mmHg) O2 Sat by Pulse 97 98 98 Oximetry 11/25/19 11/25/19 11/25/19 09:21 09:36 09:44 Temperature 103.6 F Pulse Rate 98 102 Respiratory 38 34 Rate Blood Pressure 99/53 (mmHg) O2 Sat by Pulse 93 94 Oximetry 11/25/19 11/25/19 11/25/19 09:50 10:00 10:15 Temperature 103.6 F Pulse Rate 100 102 Respiratory 33 35 38 Rate Blood Pressure 100/48 100/48 (mmHg) O2 Sat by Pulse 97 97 Oximetry 11/25/19 11/25/19 11/25/19 10:20 10:50 11:00 Temperature Pulse Rate 96 92 87 Respiratory 33 30 30 Rate Blood Pressure 97/59 94/61 (mmHg) O2 Sat by Pulse 95 95 97 Oximetry 11/25/19 11/25/19 11/25/19 11:20 11:50 12:00 Temperature Pulse Rate 86 90 87 Respiratory 29 33 21 Rate Blood Pressure 91/50 101/59 (mmHg) O2 Sat by Pulse 95 92 93 Oximetry 11/25/19 12:20 Temperature Pulse Rate 84 Respiratory 30 Rate Blood Pressure 101/61 (mmHg) O2 Sat by Pulse 93 Oximetry Oxygen Devices in Use Now: Nasal Cannula Result Diagrams: 11/25/19 03:30 11/25/19 03:30 Assess/Plan/Problems-Billing Assessment: 34W with pre-diabetes and childhood asthma, with recent positive COVID test ( November 16), presents after syncopal episode in the context of significant coughing. - Patient Problems (1) Infection due to 2019 novel coronavirus Comment: COVID confirmed by testing on November 16. Symptoms started on the . Has presented to [facility], urgent care, and [facility] several times for dyspnea. Now presents after reflex syncope (post-tussive). Intermittently requiring supplemental oxygen. - SaO2 goal on nasal cannula: 92-96%; wean as able - started on hydroxychloroquine (11/24 - 11/28) - stop antibiotics given low concern for bacterial process at this time (normal WBC, CRP 27); pt has received levofloxacin and azithromycin without improvement ; monitor QTc - start guaifenesin/codeine prn cough - albuterol MDI prn wheezing, given history of childhood asthma; s/p steroids from ER/outpatient (2) DVT prophylaxis Comment: enoxaparin (3) Full code status Current Visit: Yes Status: Acute Code(s): Z78.9 - OTHER SPECIFIED HEALTH STATUS SNOMED Code(s): 098978833
[2019-11-25] MEDS ORDERED: Magnesium Sulfate 2 GM IV* 2 GM/50 ML BAG IVPB ONE (13:30)
[2019-11-25] MEDS ORDERED: Albuterol HFA INHALER* 8 gm MDI INH PRN (14:26)
[2019-11-25] MEDS: guaiFENesin/CODIENE 100mg/10mg 5 ML UDC PO PRN ×2 (14:47→22:41)
[2019-11-25] MEDS ORDERED: LORazepam TAB(*) 0.5 MG PO PRN (16:40)
[2019-11-25] MEDS: Acetaminophen TAB* 325 MG PO PRN (19:41)
[2019-11-25] MEDS: Enoxaparin(*) 40 MG/0.4 ML SYR SUBCUT SCH (22:41)
[2019-11-26] MEDS: Acetaminophen TAB* 325 MG PO PRN ×2 (04:04→14:59)
--- NOTE | 2019-11-26 08:00 | PN ---
Subjective Date of Service: 11/26/19 Interval History: No acute events overnight. Last fever was this morning at 4AM - 102.6 F. Seems she is saturating 96% on 1 L of supplemental O2. Likely can titrate off now. Pt feels unchanged from yesterday. She has significant coughing that leads to dyspnea on any exertion. She experiences a musculoskeletal chest pain on coughing that is not present at rest. She does not know if it is worse with exertion because she always coughs on exertion. Objective Active Medications: Acetaminophen (Tylenol Tab*) 975 mg PO Q8H PRN PRN Reason: MILD PAIN or TEMP > 100.4 Last Admin: 11/26/19 04:04 Dose: 975 mg Albuterol (Ventolin Hfa Inhaler*) 2 puff INH Q4H PRN PRN Reason: WHEEZING Enoxaparin Sodium (Lovenox(*)) 40 mg SUBCUT BEDTIME HECTOR Last Admin: 11/25/19 22:41 Dose: 40 mg Guaifenesin/Codeine Phosphate (Robitussin Ac 100mg/10mg In 5 Ml) 5 ml PO Q6H PRN PRN Reason: COUGH Last Admin: 11/25/19 22:41 Dose: 5 ml Hydroxychloroquine Sulfate (Plaquenil Tab*) 400 mg PO DAILY [facility] Stop: 11/29/19 09:01 Lorazepam (Ativan Tab(*)) 0.5 mg PO Q6H PRN PRN Reason: ANXIETY Ondansetron HCl (Zofran Inj*) 4 mg IV Q4H PRN PRN Reason: NAUSEA/VOMITING Vital Signs - 8 hr 11/26/19 11/26/19 03:44 07:47 Temperature 102.6 F 99.3 F Pulse Rate 91 83 Respiratory 24 18 Rate Blood Pressure 107/53 117/64 (mmHg) O2 Sat by Pulse 95 96 Oximetry Oxygen Devices in Use Now: Nasal Cannula Appearance: mildly uncomfortable appearing, nontoxic, alert and pleasant; without increased WOB Eyes: No Scleral Icterus Ears/Nose/Mouth/Throat: Clear Oropharnyx, Mucous Membranes Moist Neck: NL Appearance and Movements; NL JVP Respiratory: - - decreased breath sounds, no wheeze Cardiovascular: NL Sounds; No Murmurs; No JVD, RRR, - - chest pain reproduced with palpation Extremities: No Edema Skin: No Rash or Ulcers Neurological: Alert and Oriented x 3 Result Diagrams: 11/26/19 08:19 11/26/19 08:19 Microbiology and Other Data: Microbiology 11/25/19 06:00 Aerobic Blood Culture - Preliminary Blood Venous No Growth Day 1 Anaerobic Blood Culture - Preliminary No Growth Day 1 11/25/19 03:30 Aerobic Blood Culture - Preliminary Blood Venous No Growth Day 1 Anaerobic Blood Culture - Preliminary No Growth Day 1 Assess/Plan/Problems-Billing Assessment: 34W with pre-diabetes and childhood asthma, with recent positive COVID test ( November 16), presents after syncopal episode in the context of significant coughing. - Patient Problems (1) Infection due to 2019 novel coronavirus Comment: COVID confirmed by testing on November 16. Symptoms started on the . Has presented to [facility], urgent care, and [facility] several times for dyspnea. Now presents after reflex syncope (post-tussive). Intermittently requiring supplemental oxygen. - SaO2 goal on nasal cannula: 92-96%; wean as able - started on hydroxychloroquine (11/24 - 11/28) - stop antibiotics given low concern for bacterial process at this time; pt has received levofloxacin and azithromycin without improvement; monitor QTc - guaifenesin/codeine prn cough; APAP prn fever - albuterol MDI prn wheezing, given history of childhood asthma; s/p steroids from ER/outpatient (2) DVT prophylaxis Comment: enoxaparin (3) Full code status Current Visit: Yes Status: Acute Code(s): Z78.9 - OTHER SPECIFIED HEALTH STATUS SNOMED Code(s): 124696320
[2019-11-26 08:31] LABS: ABS Lymphocytes 1.2 10^3/ul (1.0-4.8); ABS Monocytes 0.3 10^3/ul (0-0.8); ABS Neutrophils 3.4 10^3/ul (1.5-7.7); Hematocrit 34 % (35-47); Hemoglobin 11.7 g/dL (12.0-16.0); Lymphocyte % 23.9 %; Mean Corpuscular HGB Conc 34 g/dL (31-36); Mean Corpuscular Hemoglobin 28 pg (27-31); Mean Corpuscular Volume 83 fL (80-97); Mean Platelet Volume 7.8 fL (7.4-10.4); Platelet Count 208 10^3/uL (150-450); Red Blood Count 4.15 10^6 /uL (3.70-4.87); Red Cell Distribution Width 14 % (10-15); White Blood Count 4.9 10^3/uL (3.5-10.8)
[2019-11-26] MEDS: Hydroxychloroquine TAB* 200 MG PO SCH (08:43)
[2019-11-26 08:56] LABS: BUN/Creatinine Ratio 12.6 (8-20); C Reactive Protein 122.27 mg/L (<8.01); EGFR African American 90.7 (>60); Magnesium 2.3 mg/dL (1.9-2.7); Potassium 3.7 mmol/L (3.5-5.0)
[2019-11-26] MEDS: guaiFENesin/CODIENE 100mg/10mg 5 ML UDC PO PRN ×3 (09:05→21:32)
[2019-11-26] MEDS: Enoxaparin(*) 40 MG/0.4 ML SYR SUBCUT SCH (20:09)
[2019-11-27] MEDS: Acetaminophen TAB* 325 MG PO PRN ×3 (00:06→14:30)
[2019-11-27] MEDS: guaiFENesin/CODIENE 100mg/10mg 5 ML UDC PO PRN ×3 (07:43→23:45)
[2019-11-27 07:55] LABS: ABS Lymphocytes 1.1 10^3/ul (1.0-4.8); ABS Monocytes 0.3 10^3/ul (0-0.8); ABS Neutrophils 4.6 10^3/ul (1.5-7.7); Hematocrit 34 % (35-47); Hemoglobin 11.5 g/dL (12.0-16.0); Lymphocyte % 18.4 %; Mean Corpuscular HGB Conc 34 g/dL (31-36); Mean Corpuscular Hemoglobin 28 pg (27-31); Mean Corpuscular Volume 83 fL (80-97); Mean Platelet Volume 7.7 fL (7.4-10.4); Platelet Count 255 10^3/uL (150-450); Red Blood Count 4.15 10^6 /uL (3.70-4.87); Red Cell Distribution Width 14 % (10-15); White Blood Count 6.1 10^3/uL (3.5-10.8)
[2019-11-27 08:11] LABS: BUN/Creatinine Ratio 11.3 (8-20); EGFR Non-African American 82.6 (>60); Magnesium 2.3 mg/dL (1.9-2.7); Potassium 3.5 mmol/L (3.5-5.0)
[2019-11-27] MEDS: Hydroxychloroquine TAB* 200 MG PO SCH (08:42)
--- NOTE | 2019-11-27 08:44 | PN ---
Subjective Date of Service: 11/27/19 Interval History: No acute events overnight. Needs to get OOB more. Still with fevers, intermittent oxygen requirements. Thinks her cough/SOB are very slightly better , but also hasn't been moving much. Not eating because the food smells bad to her. Objective Active Medications: Acetaminophen (Tylenol Tab*) 975 mg PO Q8H PRN PRN Reason: MILD PAIN or TEMP > 100.4 Last Admin: 11/27/19 07:42 Dose: 975 mg Albuterol (Ventolin Hfa Inhaler*) 2 puff INH Q4H PRN PRN Reason: WHEEZING Enoxaparin Sodium (Lovenox(*)) 40 mg SUBCUT BEDTIME HECTOR Last Admin: 11/26/19 20:09 Dose: 40 mg Guaifenesin/Codeine Phosphate (Robitussin Ac 100mg/10mg In 5 Ml) 5 ml PO Q6H PRN PRN Reason: COUGH Last Admin: 11/27/19 07:43 Dose: 5 ml Hydroxychloroquine Sulfate (Plaquenil Tab*) 400 mg PO DAILY [facility] Stop: 11/29/19 09:01 Last Admin: 11/26/19 08:43 Dose: 400 mg Lorazepam (Ativan Tab(*)) 0.5 mg PO Q6H PRN PRN Reason: ANXIETY Last Admin: 11/26/19 20:10 Dose: 0.5 mg Ondansetron HCl (Zofran Inj*) 4 mg IV Q4H PRN PRN Reason: NAUSEA/VOMITING Vital Signs - 8 hr 11/27/19 11/27/19 11/27/19 01:17 02:17 07:33 Temperature 100.4 F 99.2 F Pulse Rate 82 Respiratory 18 20 Rate Blood Pressure 112/66 (mmHg) O2 Sat by Pulse 95 Oximetry 11/27/19 07:39 Temperature 102.2 F Pulse Rate 93 Respiratory 20 Rate Blood Pressure 103/60 (mmHg) O2 Sat by Pulse 93 Oximetry Oxygen Devices in Use Now: Nasal Cannula Appearance: tired appearing young woman in NAD, without increased WOB, alert and interactive Eyes: No Scleral Icterus Ears/Nose/Mouth/Throat: Clear Oropharnyx, Mucous Membranes Moist Neck: NL Appearance and Movements; NL JVP, Trachea Midline Respiratory: Symmetrical Chest Expansion and Respiratory Effort, Clear to Auscultation, - - bibasilar crackles that cleared with deep inspiration and coughing Cardiovascular: NL Sounds; No Murmurs; No JVD, RRR Abdominal: NL Sounds; No Tenderness; No Distention, No Hepatosplenomegaly Extremities: No Edema Result Diagrams: 11/27/19 07:39 11/27/19 07:39 Microbiology and Other Data: Microbiology 11/25/19 06:00 Aerobic Blood Culture - Preliminary Blood Venous No Growth Day 1 Anaerobic Blood Culture - Preliminary No Growth Day 1 11/25/19 03:30 Aerobic Blood Culture - Preliminary Blood Venous No Growth Day 1 Anaerobic Blood Culture - Preliminary No Growth Day 1 Assess/Plan/Problems-Billing Assessment: 34W with pre-diabetes and childhood asthma, with recent positive COVID test ( November 16), presents after syncopal episode in the context of significant coughing. - Patient Problems (1) Infection due to 2019 novel coronavirus Comment: COVID confirmed by testing on November 16. Symptoms started on the . Has presented to [facility], urgent care, and [facility] several times for dyspnea. Now presents after reflex syncope (post-tussive). Intermittently requiring supplemental oxygen. - SaO2 goal on nasal cannula: 92-96%; wean as able - started on hydroxychloroquine (11/24 - 11/28) - stop antibiotics given low concern for bacterial process at this time; pt has received levofloxacin and azithromycin without improvement; monitor QTc - guaifenesin/codeine prn cough; APAP prn fever - albuterol MDI prn wheezing, given history of childhood asthma; s/p steroids from ER/outpatient (2) DVT prophylaxis Comment: enoxaparin (3) Full code status Current Visit: Yes Status: Acute Code(s): Z78.9 - OTHER SPECIFIED HEALTH STATUS SNOMED Code(s): 243755028
[2019-11-27 09:20] LABS: C Reactive Protein 118.8 mg/L (<8.01)
[2019-11-27] MEDS ORDERED: Acetaminophen TAB* 325 MG PO ONE (20:00)
[2019-11-27] MEDS ORDERED: Acetaminophen TAB* 325 MG PO PRN (20:00)
[2019-11-27] MEDS: Enoxaparin(*) 40 MG/0.4 ML SYR SUBCUT SCH (23:45)
[2019-11-28] MEDS: Hydroxychloroquine TAB* 200 MG PO SCH (08:31)
[2019-11-28] MEDS: guaiFENesin/CODIENE 100mg/10mg 5 ML UDC PO PRN ×2 (08:31→15:58)
--- NOTE | 2019-11-28 11:24 | PN ---
Subjective Date of Service: 11/28/19 Interval History: No overnight events. Again 96% on 1L. Fever curve improving but still with intermittent fevers. Pt is somewhat better, again with slight improvement in cough and dyspnea, but still experiencing these symptoms on even mild exertion. Sitting in chair a lot. Objective Active Medications: Acetaminophen (Tylenol Tab*) 975 mg PO Q6H PRN PRN Reason: MILD PAIN or TEMP > 100.4 Albuterol (Ventolin Hfa Inhaler*) 2 puff INH Q4H PRN PRN Reason: WHEEZING Enoxaparin Sodium (Lovenox(*)) 40 mg SUBCUT BEDTIME HECTOR Last Admin: 11/27/19 23:45 Dose: 40 mg Guaifenesin/Codeine Phosphate (Robitussin Ac 100mg/10mg In 5 Ml) 5 ml PO Q6H PRN PRN Reason: COUGH Last Admin: 11/28/19 08:31 Dose: 5 ml Hydroxychloroquine Sulfate (Plaquenil Tab*) 400 mg PO DAILY [facility] Stop: 11/29/19 09:01 Last Admin: 11/28/19 08:31 Dose: 400 mg Lorazepam (Ativan Tab(*)) 0.5 mg PO Q6H PRN PRN Reason: ANXIETY Last Admin: 11/26/19 20:10 Dose: 0.5 mg Ondansetron HCl (Zofran Inj*) 4 mg IV Q4H PRN PRN Reason: NAUSEA/VOMITING Vital Signs - 8 hr 11/28/19 11/28/19 11/28/19 04:19 08:00 08:24 Temperature 100.9 F 96.7 F Pulse Rate 90 89 Respiratory 16 24 24 Rate Blood Pressure 135/70 112/67 (mmHg) O2 Sat by Pulse 95 96 Oximetry Oxygen Devices in Use Now: Nasal Cannula Appearance: somewhat improved spirits, nontoxic and no acute distress Eyes: No Scleral Icterus Ears/Nose/Mouth/Throat: Clear Oropharnyx, Mucous Membranes Moist Neck: NL Appearance and Movements; NL JVP, Trachea Midline Respiratory: Symmetrical Chest Expansion and Respiratory Effort, Clear to Auscultation Cardiovascular: NL Sounds; No Murmurs; No JVD, RRR Abdominal: NL Sounds; No Tenderness; No Distention, No Hepatosplenomegaly Extremities: No Edema Skin: No Rash or Ulcers Neurological: Alert and Oriented x 3 Result Diagrams: 11/27/19 07:39 11/27/19 07:39 Microbiology and Other Data: Microbiology 11/25/19 06:00 Aerobic Blood Culture - Preliminary Blood Venous No Growth Day 1 Anaerobic Blood Culture - Preliminary No Growth Day 1 11/25/19 03:30 Aerobic Blood Culture - Preliminary Blood Venous No Growth Day 1 Anaerobic Blood Culture - Preliminary No Growth Day 1 Assess/Plan/Problems-Billing Assessment: 34W with pre-diabetes and childhood asthma, with recent positive COVID test ( November 16), presents after syncopal episode in the context of significant coughing. - Patient Problems (1) Infection due to 2019 novel coronavirus Comment: COVID confirmed by testing on November 16. Symptoms started on the . Has presented to [facility], urgent care, and [facility] several times for dyspnea. Now presents after reflex syncope (post-tussive). Intermittently requiring supplemental oxygen. - SaO2 goal on nasal cannula: 92-96%; wean as able - started on hydroxychloroquine (11/24 - 11/28) - stop antibiotics given low concern for bacterial process at this time; pt has received levofloxacin and azithromycin without improvement; monitor QTc - guaifenesin/codeine prn cough; APAP prn fever - albuterol MDI prn wheezing, given history of childhood asthma; s/p steroids from ER/outpatient (2) DVT prophylaxis Comment: enoxaparin (3) Full code status Current Visit: Yes Status: Acute Code(s): Z78.9 - OTHER SPECIFIED HEALTH STATUS SNOMED Code(s): 637006330 Status and Disposition: Will discharge today if able to get supplemental O2.
[2019-11-28 16:34] VITALS: BP 123/63
--- NOTE | 2019-11-28 18:46 | DS ---
CC: Dr. Vani Feliz, [facility] * DISCHARGE SUMMARY: DATE OF ADMISSION: 11/25/19 DATE OF DISCHARGE: 11/28/19 PRIMARY CARE PHYSICIAN: Dr. Vani Feliz of [facility]. PRIMARY DIAGNOSIS: COVID-19 pneumonia. SECONDARY DIAGNOSES: 1. Prediabetes. 2. Morbid obesity. 3. Childhood asthma. DISCHARGE MEDICATIONS: 1. Hydroxychloroquine 400 mg daily for 1 more day. 2. Guaifenesin/codeine 100 mg/10 mg, 5 mL every 6 hours as needed for cough. 3. Acetaminophen 1000 mg every 8 hours as needed for discomfort from fever. 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 She was tested 8 days prior to presentation on 11/17/19, although her symptoms started on . For the last several days, she has had progressively worsening shortness of breath and cough. She visited [facility], this ER, and urgent care nearly every day over the last 2 weeks with these severe symptoms. She states she has had a fever over the last several days as well, which she measured to 102 degrees Fahrenheit at home, which responded to Tylenol. Recently, at [facility], she was prescribed Levaquin 750 mg daily as well as azithromycin 500 mg daily, and after a few days on these antibiotics, her symptoms had not improved. The patient states that on night prior to this presentation, she was walking to her bathroom when she began experiencing again a sudden attack of severe coughing associated with shortness of breath and she experienced a syncopal episode. 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 She was at a [employer] conference on the 45th floor of a building and was contacted by [facility] later that the electric motor assembler and tester had been on the 47th floor. The patient has been denying chest pain, nausea, vomiting, diarrhea. She has had profound weakness and her mother has had to come up from [place] to help take care of her. Her mother also was tested positive for COVID, but has remained asymptomatic. The patient's other only notable symptom is decreased taste. HOSPITAL COURSE: In the emergency room, the patient was intermittently requiring oxygen with initial SaO2 on room air 87%. She was started on hydroxychloroquine and IV Zosyn and asked to be admitted to the medical service. The patient was experiencing high temperature to 102.5 and occasionally up to 103, but she was without leukocytosis, thrombocytopenia, or LFT abnormalities. She had a lactate of 2.1, which resolved with fluids. Her CRP on the day of admission was 27, which increased to 122 by the next day. Another CT was performed in the ER, which showed patchy areas of ground-glass opacification and parenchymal consolidation noted bilaterally concerning for a multifocal infectious/inflammatory process compatible with given history of COVID-19. Findings are not significantly changed from prior study 2 days prior. Given low concern for bacterial superinfection, the patient's antibiotics were discontinued. She had 2 sets of blood cultures drawn on the day of admission and again over 2 days after cessation of antibiotics and all have remained without growth to date. Throughout her admission, she spiked intermittent fevers, although by the day of discharge they were only as high as 100.9. Throughout admission, the patient also intermittently required oxygen usually approximately 1 L per minute nasal cannula with resultant SaO2 96%, although the patient would experience more significant desaturation upon ambulation, so by the day of discharge she was approved for home oxygen, given a pulse oximeter, and educated how to titrate her oxygen at home. She did report that her symptoms were slightly improving and it was easier for her to transfer from bed to chair as well as to walk to the bathroom. DIAGNOSTIC STUDIES/LAB DATA: CBC notable for hemoglobin 11.5 which is mildly low with MCV 83. BMP with mild hyponatremia to 134 with normal creatinine. CRP peaked to 122 and decreased slightly before discharge. Four sets of blood cultures without growth to date. Chest CT with contrast with patchy areas of ground-glass opacification and parenchymal consolidation noted bilaterally concerning for a multifocal infectious/inflammatory process compatible with given history of COVID-19. Findings are not significantly changed from prior study 2 days ago. There is fatty infiltration of the liver. DISCHARGE PLAN: The patient will be discharged to recuperate at home. She was given an oxygen tank and a pulse oximeter to use supplemental oxygen as needed. She was educated to have a goal SaO2 above 92% on room air, and if she does require supplemental oxygen, her SaO2 goal is 92% to 96%. She was extensively educated that if she is noticing increasing supplemental oxygen need that she should contact health care provider urgently. She was able to stay at her oxygenation goal on 1 to 2 L throughout hospitalization and if she notices this is increasing to call her provider. She was also informed to contact the Department of Health and to remain on isolation until she is cleared by them. She was given 1 more day of hydroxychloroquine 400 mg to take on her day after discharge. She was also educated on maximum upper limit of acetaminophen to take every day and given a cough syrup to take p.r.n. DIET: Healthy diet, low in processed foods and carbohydrates. ACTIVITY: As tolerated. DISPOSITION: To home. CONDITION: Improved. TIME SPENT: Approximately 60 minutes was spent on discharge of this patient, more than half of which was spent with care coordination at bedside for interview and exam. [id number]/[facility] #: [id number] KENDELL
== END 2019-11-28 17:50 | disposition home or self-care (01) | DRG 194 ==
LOC: ED 03:27 → MED 05:03
PROVIDERS: ADMIT Internal Medicine; ATTEND Internal Medicine
DX: J12.89 Other viral pneumonia (principal); Z68.41 Body mass index [BMI] 40.0-44.9, adult; E87.1 Hypo-osmolality and hyponatremia; B97.29 Other coronavirus as the cause of diseases classified elsewhere; R73.03 Prediabetes; E66.01 Morbid (severe) obesity due to excess calories; J45.909 Unspecified asthma, uncomplicated; Z83.3 Family history of diabetes mellitus; Z82.49 Family history of ischemic heart disease and other diseases of the circulatory system; Z82.5 Family history of asthma and other chronic lower respiratory diseases
CPT/HCPCS: 36415; 71260; 80048; 80053; 83605; 83735; 83880; 84484; 84702; 85025; 85610; 86140; 87040; 96365; 99284; A9270-GY; J1650; J2543; J3475; Q9967

== ENCOUNTER 2019-12-14 14:23 | Emergency (ER) | payer OTHER ==
--- OUTSIDE RECORDS SUMMARY | 2019-12-14 15:13 | XMS REPORT | Continuity of Care Document ---
:1985 External Reference #:[id number] Author Name Mariama Richardson MD (transmitted by agent of provider Tracy Armendariz) Address [address] [place] [address] Problems Description No Information Available Social History Type Date Description Comments Sex Unknown Allergies, Adverse Reactions, Alerts Description No Information Available Medications Description No Information Available Immunizations Description No Information Available Vital Signs Description No Information Available Results Description No Information Available Procedures Description No Information Available Medical Devices Description No Information Available Encounters Type Date Location Provider Dx Diagnosis Office Visit 11/27/2019 [facility] Mariama Richardson, R06.00 Dyspnea, 10:31a Assoc,pc unspecified Hospitalists B97.29 Oth coronavirus as the cause of diseases classd elsr J45.909 Unspecified asthma, uncomplicated Office Visit 11/25/2019 10:29a [facility] Navya Lira J12.89 Other viral Assmario mcmullen M.D. pneumonia Hospitalists B97.29 Oth coronavirus as the cause of diseases classd elsr J45.909 Unspecified asthma, uncomplicated Assessments Date Code Description Provider 11/28/2019 J12.89 Other viral pneumonia Mariama Richardson MD 11/28/2019 B97.29 Other coronavirus as the cause of diseases Mariama Richardson MD classified elsewhere 11/28/2019 J45.909 Unspecified asthma, uncomplicated Mariama Richardson MD 11/27/2019 R06.00 Dyspnea, unspecified Mariama Richardson MD 11/27/2019 B97.29 Other coronavirus as the cause of diseases Mariama Richardson MD classified elsewhere 11/27/2019 J45.909 Unspecified asthma, uncomplicated Mariama Richardson MD 11/25/2019 J12.89 Other viral pneumonia Navya Lira M.D. 11/25/2019 B97.29 Other coronavirus as the cause of diseases Navya Lira M.D. classified elsewhere 11/25/2019 J45.909 Unspecified asthma, uncomplicated Navya Lira M.D. Plan of Treatment No Information Available Functional Status Description No Information Available Mental Status Description No Information Available Referrals Description No Information Available
--- OUTSIDE RECORDS SUMMARY | 2019-12-14 15:13 | XMS REPORT | Continuity of Care Document ---
:1985 External Reference #:[id number] Author Name Maraima Richardson MD (transmitted by agent of provider Sowmya Hill) Address [address] [address] Problems Description No Information Available Social History Type Date Description Comments Sex Unknown Allergies, Adverse Reactions, Alerts Description No Information Available Medications Description No Information Available Immunizations Description No Information Available Vital Signs Description No Information Available Results Description No Information Available Procedures Description No Information Available Medical Devices Description No Information Available Encounters Type Date Location Provider Dx Diagnosis Office Visit 11/27/2019 [facility] Mariama Richardson, R06.00 Dyspnea, 10:31a Assoc,pc unspecified Hospitalists B97.29 Oth coronavirus as the cause of diseases [facility] J45.909 Unspecified asthma, uncomplicated Office Visit 11/26/2019 10:30a [facility] Mariama R50.9 Fever, Assoc,pc MD Debra unspecified Hospitalists B97.29 Oth coronavirus as the cause of diseases classd [facility] Office Visit 11/25/2019 10:29a [facility] Navya Lira J12.89 Other viral Assocmario M.D. pneumonia Hospitalists B97.29 Oth coronavirus as the cause of diseases [facility]d [facility] J45.909 Unspecified asthma, uncomplicated Assessments Date Code [...] J45.909 Unspecified asthma, uncomplicated Mariama Richardson MD 11/26/2019 R50.9 Fever, unspecified Mariama Richardson MD 11/26/2019 B97.29 Other coronavirus as the cause of diseases Mariama Richardson MD classified elsewhere 11/25/2019 J12.89 Other viral pneumonia Navya Lira M.D. 11/25/2019 B97.29 Other coronavirus as the cause of diseases Navya Lira M.D. classified elsewhere 11/25/2019 J45.909 Unspecified asthma, uncomplicated Navya Lira M.D. Plan of Treatment No Information Available Functional Status Description No Information Available Mental Status Description No Information Available Referrals Description No Information Available
--- NOTE | 2019-12-14 15:37 | ED ---
HPI Chest Pain - HPI Summary HPI Summary: This patient is a 34 y/o female [facility] c/o left sided chest pain x2 weeks. Patient describes her left sided chest pain as pressure radiating to her left upper extremity. She states chest pain on mild exertion, even with just washing the dishes. Associated symptoms include shortness of breath. Patient uses oxygen at home. Denies fever, chills, vomiting. Patient reports she tested positive to COVID-19 two weeks ago and was hospitalized at [facility] for 4 days. She currently rates her chest pain 3 to 4 out of 10 in severity. Patient called her PCP today and was advised to come to the ED. Home Medications Medication Instructions Recorded Confirmed Type Acetaminophen [Acetaminophen Extra 1,000 mg PO Q8H PRN #90 tablet 11/28/1912/13 Rx Strength] Albuterol HFA INHALER* [Ventolin 1 puff INH BID PRN 12/14/19 12/14/19 History HFA Inhaler*] Norgestimate-Ethinyl Estradiol 1 tab PO DAILY 12/14/19 12/14/19 History [Estarylla 0.25-0.035 mg Tablet] - History of Current Complaint Chief Complaint: EDChestWallPain Time Seen by Provider: 12/14/19 15:18 Hx Obtained From: Patient Onset/Duration: Started Days Ago, Still Present Timing: Constant, Lasting Days Current Severity: Mild Pain Intensity: 4 Pain Scale Used: 0-10 Numeric Chest Pain Location: Left Anterior Chest Pain Radiates: Yes Chest Pain Radiates To:: Arm - left Character: Pressure/Squeezing - pressure Aggravating Factor(s): Nothing Alleviating Factor(s): Nothing Associated Signs and Symptoms: Positive: Chest Pain, Shortness of Breath. Negative: Fever, Chills - Additional Pertinent History Primary Care Physician: JOVITA - Allergy/Home Medications Allergies/Adverse Reactions: Allergies Allergy/AdvReac Type Severity Reaction Status Date / Time No Known Allergies Allergy Verified 11/25/19 03:58 Home Medications: Home Medications Acetaminophen [Acetaminophen Extra Strength] 1,000 mg PO Q8H PRN #90 tablet [Rx Confirmed 12/14/19] Albuterol HFA INHALER* [Ventolin HFA Inhaler*] 1 puff INH BID PRN 12/14/19 [ History Confirmed 12/14/19] Norgestimate-Ethinyl Estradiol [Estarylla 0.25-0.035 mg Tablet] 1 tab PO DAILY 12/14/19 [History Confirmed 12/14/19] PMH/Surg Hx/FS Hx/Imm Hx Endocrine/Hematology History: Reports: Hx Diabetes - PRE DIABETES NO MEDICATION Cardiovascular History: Denies: Hx Hypertension, Hx Pacemaker/ICD Respiratory History: Reports: Hx Asthma, Hx Pneumonia, Other Respiratory Problems/Disorders - Patient is positive for COVID19. History: Denies: Hx Renal Disease Sensory History: Reports: Hx Contacts or Glasses Denies: Hx Hearing Aid Opthamlomology History: Reports: Hx Contacts or Glasses Psychiatric History: Denies: Hx Panic Disorder - Surgical History Surgical History: Yes Surgery Procedure, Year, and Place: POLYP REMOVED FROM UTERUS Infectious Disease History: Yes Infectious Disease History: Reports: History Other Infectious Disease - COVID-19 , confirmed positive 11/20/19 Denies: Traveled Outside the [place] in Last 30 Days - Family History Known Family History: Positive: Hypertension, Diabetes - Social History Alcohol Use: Occasionally Hx Substance Use: No Substance Use Type: Reports: None Hx Tobacco Use: No Smoking Status (MU): Never Smoked Tobacco Review of Systems Negative: Fever, Chills Positive: Chest Pain Positive: Shortness Of Breath Negative: Vomiting All Other Systems Reviewed And Are Negative: Yes Physical Exam - Summary Physical Exam Summary: VITAL SIGNS: Reviewed. GENERAL: Patient is a well-developed and nourished female who is lying comfortable in the stretcher. She is wearing oxygen via nasal cannula. Patient is not in any acute respiratory distress. HEAD AND FACE: No signs of trauma. No ecchymosis, hematomas or skull depressions. No sinus tenderness. EYES: PERRLA, EOMI x 2, No injected conjunctiva, no nystagmus. EARS: Hearing grossly intact. Ear canals and tympanic membranes are within normal limits. MOUTH: Oropharynx within normal limits. NECK: Supple, trachea is midline, no adenopathy, no JVD, no carotid bruit, no c- spine tenderness, neck with full ROM. CHEST: Symmetric, no tenderness at palpation LUNGS: Clear to auscultation bilaterally. No wheezing or crackles. CVS: Regular rate and rhythm, S1 and S2 present, no murmurs or gallops appreciated. ABDOMEN: Soft, non-tender. No signs of distention. No rebound no guarding, and no masses palpated. Bowel sounds are normal. EXTREMITIES: FROM in all major joints, no edema, no cyanosis or clubbing. NEURO: Alert and oriented x 3. No acute neurological deficits. Speech is normal and follows commands. SKIN: Dry and warm Triage Information Reviewed: Yes Vital Signs On Initial Exam: Initial Vitals Temp Pulse Resp BP Pulse Ox 97.4 F 84 16 126/76 99 12/14/19 15:14 12/14/19 15:14 12/14/19 15:14 12/14/19 15:14 12/14/19 15:14 Vital Signs Reviewed: Yes Procedures - Sedation Patient Received Moderate/Deep Sedation with Procedure: No Diagnostics - Vital Signs Vital Signs Temp Pulse Resp BP Pulse Ox 12/14/19 15:14 97.4 F 84 16 126/76 99 - Laboratory Result Diagrams: 12/14/19 16:25 12/14/19 16:25 Lab Statement: Any lab studies that have been ordered have been reviewed, and results considered in the medical decision making process. - Radiology Chest XR Radiology Interpretation Completed By: Radiologist Summary of Radiographic Findings: Pending official radiology report. - EKG 1607 Cardiac Rate: NL - at 67 bpm EKG Rhythm: Sinus Rhythm Summary of EKG Findings: EKG at 1607 shows sinus rhythm at a rate of 67 bpm. No STEMI. This EKG was reviewed and interpreted by ED physician. Chest Pain Course/Dx - Course Assessment/Plan: This patient is a 34 y/o female presenting to [facility] c/o left sided chest pain x2 weeks. Patient describes her left sided chest pain as pressure radiating to her left upper extremity. She states chest pain on mild exertion, even with just washing the dishes. Associated symptoms include shortness of breath. Patient uses oxygen at home. Denies fever, chills, vomiting. Patient reports she tested positive to COVID-19 two weeks ago and was hospitalized at [facility] for 4 days. She currently rates her chest pain 3 to 4 out of 10 in severity. Patient called her PCP today and was advised to come to the ED. In the ED course the patient was placed in a research rn spec, IV access was obtained. Past medical records reviewed. Blood test w/o a significant abnormality except for hemoglobin of 11.3, and calcium 8.4. First troponin is 0.00, d-dimer is less than 200. EKG shows a normal sinus rhythm without any significant elevation. Chest x-ray shows no acute pathology. I discussed my physical exam and findings with Dr. Silverio from the hospitalist services who will consult for this patient and give the appropriate disposition. At this time I was signed out to Dr. Chiu at shift change to follow-up on Dr. Silverio s recommendation. Patient is hemodynamically stable, alert and conversive. - Diagnoses Provider Diagnoses: Chest pain - Provider Notifications Discussed Care Of Patient With: August Crowder Time Discussed With Above Provider: 17:15 Instructed by Provider To: Other - Discussed the case with Dr. Crowder, pig farm manager, who reports if patient needs to be admitted echo and stress test will be done tomorrow. However if patient is discharged home he will make arrangements for an echocardiogram. [1729] Spoke with Dr. Silverio, hospitalist, who will consult for this patient. Discharge ED - Sign-Out/Discharge Documenting (check all that apply): Sign-Out Patient Signing out patient TO: Kevin Chiu - Discharge Plan Condition: Stable Referrals: Vani Feliz DO [Primary Care Provider] - - Billing Disposition and Condition Condition: STABLE - Attestation Statements Document Initiated by Scribe: Yes Documenting Scribe: Mariama Villanueva Provider For Whom Wenceslao is Documenting (Include Credential): Osiel Orona MD Scribe Attestation: I, Mariama Villanueva, scribed for Osiel Orona MD on 12/14/19 at 1743. Scribe Documentation Reviewed: Yes Provider Attestation: The documentation as recorded by the Mariama schmitt accurately reflects the service I personally performed and the decisions made by me, Osiel Orona MD Status of Scribe Document: Viewed
[2019-12-14 16:47] LABS: ABS Eosinophils 0.1 10^3/ul (0-0.6); ABS Lymphocytes 1.8 10^3/ul (1.0-4.8); ABS Monocytes 0.6 10^3/ul (0-0.8); ABS Neutrophils 3.2 10^3/ul (1.5-7.7); Eosinophil % 1.5 %; Hematocrit 34 % (35-47); Hemoglobin 11.3 g/dL (12.0-16.0); Lymphocyte % 31.5 %; Mean Corpuscular HGB Conc 34 g/dL (31-36); Mean Corpuscular Hemoglobin 28 pg (27-31); Mean Corpuscular Volume 83 fL (80-97); Mean Platelet Volume 7.8 fL (7.4-10.4); Nucleated Red Blood Cells % 0.1; Platelet Count 313 10^3/uL (150-450); Red Blood Count 4.09 10^6 /uL (3.70-4.87); Red Cell Distribution Width 15 % (10-15); White Blood Count 5.8 10^3/uL (3.5-10.8)
[2019-12-14 16:56] LABS: Activated Partial Thrombo Time 32.7 seconds (26.0-38.0)
[2019-12-14 17:03] LABS: Albumin 3.7 g/dL (3.2-5.2); Albumin/Globulin Ratio 1.2 (1-3); BUN/Creatinine Ratio 14.7 (8-20); Calcium 8.4 mg/dL (8.6-10.3); EGFR African American 120.6 (>60); EGFR Non-African American 99.6 (>60); Potassium 3.7 mmol/L (3.5-5.0); Total Bilirubin 0.4 mg/dL (0.2-1.0); Total Protein 6.7 g/dL (6.4-8.9)
[2019-12-14 17:06] LABS: CKMB ng/mL 1.1 ng/mL (0.6-6.3)
[2019-12-14 17:43] LABS: TSH (Thyroid Stimulating Horm) 2.5 mcIU/mL (0.34-5.60)
--- NOTE | 2019-12-14 20:18 | ED ---
Progress - Progress Note Progress Note: 34 y/o F signed out from Dr. Orona upon shift change 12/14/2019 1900 pending evaluation by the hospitalist and disposition. CXR unchanged from prior. Course/Dx - Course Course Of Treatment: Patient was signed out to myself from Dr. Orona. Patient was a covid 19 patient and diagnosed roughly 1 month ago. Patient was admitted for Covid 19 at one point and discharged. Patient's had atypical chest pain. The patient had evaluation by the hospitalist who thought patient was safe for discharge given her low heart score. Patient's symptoms do not appear to be myocarditis given her not having active Covid 19 and her markers are normal. - Diagnoses Provider Diagnoses: Chest pain, Shortness of breath Discharge ED - Sign-Out/Discharge Documenting (check all that apply): Patient Departure, Receiving Sign-Out Receiving patient FROM: Osiel Orona - Discharge Plan Condition: Stable Disposition: HOME Patient Education Materials: Chest Pain (ED) Referrals: Vani Feliz DO [Primary Care Provider] - Additional Instructions: Follow up with your primary care provider in 1-3 days for outpatient stress test if they think it is necessary. Your workup today was negative. Please return to the Emergency Department for any new, worsening, concerning symptoms such as severe pain or trouble breathing. - Billing Disposition and Condition Condition: STABLE Disposition: Home - Attestation Statements Document Initiated by Wenceslao: Yes Documenting Scribe: Monalisa Ewing Provider For Whom Wenceslao is Documenting (Include Credential): Kevin Chiu MD Scribe Attestation: I, Monalisa Ewing, scribed for Kevin Chiu MD on 12/16/19 at 0703. Scribe Documentation Reviewed: Yes Provider Attestation: The documentation as recorded by the Monalisa schmitt accurately reflects the service I personally performed and the decisions made by me, Kevin Chiu MD Status of Scribe Document: Viewed
--- NOTE | 2019-12-14 20:21 | CONSULT ---
Subjective Date of Service: 12/14/19 Interval History: This is a 34 F with history of Childhood Asthma, Prediabetes and recent COVID infection presented with complaint of chest pain for 2 weeks. Patient was admitted on 11/24 to 11/27 for COVID and was discharged on 2 L of oxygen. According to patient, her chest pain started 2-3 days after the discharge and is on left side; 3-4/10 on intensity, radiating to left arm and more while doing home chores and is also present at night. She denies pleuritic nature of chest pain. She also has dry cough which was also present during the discharge and no increase in productivity of cough. She denies SOB and is using 1-2 L of oxygen at home to feel her better and there is no increased oxygen requirement. She denies fever, abdominal pain, nausea, vomiting and diarrhea. For this symptoms, she called her PCP at [facility] and was worried out heart involvement so she came to ED. In ED, her vitals were stable; SpO2 100 on 2L of oxygen. Blood work showed normocytic anemia, normal WBC, D-dimer and Troponin. Repeat troponin was 0.00. Her EKG showed normal sinus rhythm with nonspecific T changes in III and aVF but no change since prior EKG on 11/10/19. Dr. Crowder was consulted by ED who recommended if patient to be admitted then stress test and Echo tomorrow but if patient to be discharged then Echo which can be done as an outpatient. SO hospitalist service was consulted regarding the disposition of patient. Past Medical/Family/Social History: Past Medical: 1. Childhood Asthma 2. Prediabetes 3. COVID infection Past Surgical 1. Uterine polypectomy Family History: Family history positive for Diabetes, Hypertension and Asthma. No sudden cardiac or OR on parents or siblings. Maternal grandmother had Heart disease. 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 She lives alone but at present her mother is staying with her. She denies use of tobacco, alcohol and recreational drug use. Her surrogate decision maker is her Mother. She is full code. Consulting Service: Emergency Medicine Reason for Consult: Hospitalist Service was consulted for chest pain and disposition. Please see above. Review of Systems - Review of Systems Constitutional: Negative: Fever, Chills, Sweats, Weakness, Malaise, Other Eyes: Negative: Pain, Vision Change, Conjunctivae Inflammation, Eyelid Inflammation, Redness, Other ENT: Positive: Nose Congestion, Throat Pain. Negative: Ear Pain, Ear Discharge , Nose Pain, Nose Discharge, Mouth Pain, Mouth Swelling, Throat Swelling, Other Respiratory: Positive: Cough, Dry, Shortness of Breath. Negative: Hemoptysis, SOB with Excertion, Pleuritic Pain, Sputum, Wheezing Cardiovascular: Positive: Chest Pain. Negative: Palpitations, Orthopnea, Paroxysmal Noc. Dyspnea, Edema, Light Headedness, Other Gastrointestinal: Negative: Nausea, Vomiting, Abdominal Pain, Diarrhea, Constipation, Melena, Hematochezia, Other Genitourinary: Negative: Dysuria, Frequency, Incontinence, Hematuria, Retention , Other Musculoskeletal: Negative: Neck Pain, Shoulder Pain, Arm Pain, Back Pain, Hand Pain, Leg Pain, Foot Pain, Other Skin: Negative: Rash, Lesions, Augustin, Bruising, Other Neurological/Mental Status: Negative: Weakness, Numbness, Incoordination, Change in Speech, Confusion, Seizures, Other Objective Vital Signs - 8 hr 12/14/19 12/14/19 12/14/19 15:14 16:03 16:14 Temperature 97.4 F Pulse Rate 84 69 Respiratory 16 Rate Blood Pressure 126/76 115/83 (mmHg) O2 Sat by Pulse 99 99 Oximetry 12/14/19 12/14/19 12/14/19 16:33 17:00 17:03 Temperature Pulse Rate 67 64 79 Respiratory 12 14 21 Rate Blood Pressure 106/71 105/81 (mmHg) O2 Sat by Pulse 99 100 100 Oximetry 12/14/19 12/14/19 12/14/19 17:33 18:00 18:03 Temperature Pulse Rate 63 58 59 Respiratory 25 19 18 Rate Blood Pressure 116/68 107/58 (mmHg) O2 Sat by Pulse 100 100 100 Oximetry 12/14/19 12/14/19 12/14/19 18:33 19:00 19:03 Temperature Pulse Rate 65 66 59 Respiratory 21 20 20 Rate Blood Pressure 116/64 111/69 (mmHg) O2 Sat by Pulse 100 99 100 Oximetry 12/14/19 19:33 Temperature Pulse Rate 67 Respiratory 21 Rate Blood Pressure 117/74 (mmHg) O2 Sat by Pulse 100 Oximetry Exam: GENERAL APPEARANCE: well-nourished obese female in no acute distress. HEENT: Normocephalic and atraumatic. No scleral icterus. Pupils are equal, round , and reactive to light and accommodation NECK: Supple. Trachea is midline. No evidence of thyroid enlargement. No lymphadenopathy or tenderness. CHEST: Symmetric. Nontender to palpation. LUNGS: Breath sounds are equal bilaterally. No added sounds HEART: Regular rhythm.normal S1 and S2. No murmurs, gallops, or rubs. ABDOMEN: Soft, obese and nontender. Normal bowel sound heard. EXTREMITIES: No swelling, cyanosis and clubbing NEUROLOGIC: No focal sensory or motor deficits are noted. Cranial nerves II through XII are intact. Deep tendon reflexes are intact. Result Diagrams: 12/14/19 16:25 12/14/19 16:25 Assess/Plan/Problems-Billing Assessment: This is a 34 F with hisotry of childhood asthma, prediabetes, morbid obesity and recent obesity who presented with subacute left sided chest pain associated with dry cough and cuurently using 2L of oxygen since last discharge. Normal troponin, d-dimer, BNP and nonspecific EKG changes. - Patient Problems (1) Chest pain Current Visit: Yes Status: Acute Code(s): R07.9 - CHEST PAIN, UNSPECIFIED SNOMED Code(s): 04498000 Comment: -Subacute and nonspecific. -Although patient states that her pain is more during mild exertion, it is also present at night while resting- cannot say exertional -No fever, PND, orthopnea and pleuritic nature -Given her recent COVID infection, there is possibility of Myocarditis which is reported in few cases with COVID. But her Troponin is normal and EKG is also nonspecific. We will need to do an Echo which cannot be done today and can be done as an outpatient. -D-dimer normal and BNP normal -Chest xray done today looks better than before- resolving opacities.(Although official read pending). - Her HEART score is 3 which is low risk and carries 0.9-1.7% risk of adverse cardiac events. Based on the score she can safely be dischrged home but she should follow with her PCP and test and research reactor operator and decide about ECHO. -If she develops increasing chest pain, shortness of breath or increased oxygen requirement then she should come to ED. (2) Infection due to 2019 novel coronavirus Current Visit: No Status: Acute Code(s): B34.2 - CORONAVIRUS INFECTION, UNSPECIFIED SNOMED Code(s): 167919069 Comment: -COVID confirmed by testing on November 16. Symptoms started on the . Has presented to [facility], urgent care, and [facility] ER several times for dyspnea. ADmitted form 11/24 to 11/27 -Discharged with home oxygen and using 1-2 L at home. -No increased oxyhen requirement recently. -Should stay and home and follow health department protocol. -If symptoms worsens as mentioned above then she should come back to ED. Status and Disposition: Can be discharged. Should follow with PCP and decide on ECHO Attending: Navya Lira Attestation Supervising Physician: Navya Lira Attending/Supervising Physician Comment: pt is a 34 yo F s/p recent COVID infection who presented with CP. workup in the ED was unremarkable. As d/w Dr. Chiu pt can be discharged from ED if second troponin is negative and f/u with PCP in the next 3-7 days for further outpatient evaluation Attestation: This service has been performed in part by a resident under the direction of a teaching physician.I, Navya Lira MD., performed the service, or was physically present during the critical, or chisholm portions of the service, furnished by the resident. I participated in the management of the patient.
[2019-12-14 21:03] VITALS: BP 113/71
== END 2019-12-14 21:02 | disposition home or self-care (01) ==
LOC: ED 14:23
DX: U07.1 COVID-19 (principal); R07.9 Chest pain, unspecified; R06.02 Shortness of breath; Z79.899 Other long term (current) drug therapy; R73.03 Prediabetes; Z79.3 Long term (current) use of hormonal contraceptives
CPT/HCPCS: 36415; 71045; 80053; 82550; 82553; 83605; 83735; 83880; 84443; 84484; 85025; 85379; 85730; 93005; 99283